=== PATIENT | male | born 1990 | race Caucasian/White ===

== ENCOUNTER → 2019-07-03 11:51 | Outpatient (BNVA) | payer MEDICAID, SELFPAY | PROVIDERS: Visit Provider Nurse Practitioner Family | DX: J45.909 Unspecified asthma, uncomplicated (principal); Z13.6 Encounter for screening for cardiovascular disorders; Z00.00 Encounter for general adult medical examination without abnormal findings | CPT/HCPCS: 80053; 80061; 85025 ==

== ENCOUNTER 2019-10-06 10:08 | Emergency (ER) | payer MEDICAID, SELFPAY ==
[2019-10-06] VITALS (14 sets, daily range): BP systolic 140–167; BP diastolic 71–92; PULSE 92–121; RESP 17–31; TEMP 37; O2SAT 95–97; BMI 23.0
--- NOTE | 2019-10-06 10:20 | XRR_ITS ---
PROCEDURE INFORMATION: Exam: XR Right Knee Exam date and time: 10/06/2019 10:21 AM Age: 29 years old Clinical indication: Injury or trauma; Fall; Initial encounter; Patella or knee; Right; Severity of dislocation not specified; Additional info: Pain/deformity TECHNIQUE: Imaging protocol: XR Right knee. Views: 3 views. COMPARISON: No relevant prior studies available. FINDINGS: Bones/joints: Complete lateral dislocation of the patella. Soft tissues: Normal. XR/XR knee RT 3V* [id number] IMPRESSION: Complete lateral dislocation of the patella.
--- NOTE | 2019-10-06 10:21 | ED_ITS ---
HPI - Extremity Problem General: Chief complaint: Extremity Injury, Lower Stated complaint: RIGHT KNEE DISLOCATION Time Seen by Provider: 10/06/19 10:12 History of Present Illness: HPI Narrative: 29-year-old male presents to the emergency room with complaint of knee pain. He was mowing the lawn at an angle and slipped resulting in what appears to be a dislocated patella. There is lateral displacement of the patella with obvious deformity. There is no pro jecting bone, there is no laceration. He states he previously had a similar injury and was cared for by Dr. Hensley. Complaint: extremity pain Onset (ago): minute(s) Pain Consistency: constant Location: right, lower extremity and knee Severity scale (1-10): 10 Quality: sharp Associated symptoms: Reports no associated symptoms; Deny chest pain, fever(s) or rash Review of Systems Const: Denies: fever(s), chills, body aches, change in appetite, fatigue or malaise ENMT: Denies: throat pain, ear or mastoid pain, nasal discharge or nasal congestion Card: Denies: chest pain, edema, dyspnea on exertion or orthopnea Resp: Denies: dyspnea, productive cough or non-productive cough GI: Denies: abdominal pain, nausea, vomiting, hematemesis, coffee ground emesis, diarrhea, constipation, bloating, hematochezia or melena : Denies: flank pain, dysuria, urinary frequency or urinary urgency Skin/Breast: Denies: rash or pruritus PFSH ED PFSH: Family History Father Diabetes Hyperlipidemia Hypertension Stroke Heart disease Social History Smoking and tobacco status: never smoked Second hand smoke exposure: No Alcohol intake: never Lives independently: No Household members: family Housing: House Marital status: Single service: No Current occupational status: disabled History of recent travel: No Current gender identity: Male Physical Exam Const: COMMON NORMALS: average body habitus, patient oriented x3 and alert GENERAL APPEARANCE: cooperative, comfortable, well kempt and well developed N UTRITIONAL APPEARANCE: obese ORIENTATION/CONSCIOUSNESS: Yes awake, Yes oriented to person and Yes oriented to place HENMT: COMMON NORMALS: normocephalic, atraumatic and Normal external nose present HEAD & SCALP: normocephalic and atraumatic NOSE: Normal external nose present MOUTH: Normal oral and palatal mucosa present, lip normal and tongue normal THROAT: posterior oropharynx normal and tonsils normal Eye: COMMON NORMALS: Equal, round and reactive pupils present, EOMs intact bilaterally, conjunctivae normal and no scleral icterus CONJUNCTIVA: Yes conjunctivae normal PUPIL: Yes Equal, round and reactive pupils present Neck/C-Spine: COMMON NORMALS: full ROM, no lymphadenopathy, supple, no meningeal signs and Thyroid normal THYROID: Thyroid normal and asymmetrical Lymph: LYMPHATIC: no lymphadenopathy noted Resp: COMMON NORMALS: normal respiratory effort, No retractions, No use of accessory muscles and clear to auscultation bilaterally AUSCULTATION: clear to auscultation bilaterally Cardio: COMMON NORMALS: regular rate and regular rhythm RATE: regular rate RHYTHM: regular rhythm HEART SOUNDS: no murmurs GI: COMMON NORMALS: Normal to inspection, nondistended, normoactive bowel sounds present, Soft to palpation and No hepatosplenomegaly present PALPATION: Yes Soft to palpation and Yes No hepatosplenomegaly present : COMMON NORMALS: Yes no CVA tenderness BLADDER/KIDNEY EXAM: Yes no CVA tenderness Back/Pelvis: COMMON NORMALS: no CVA tenderness LUMBAR SPINE/LOWER BACK: Yes normal to inspection Extremity: NARRATIVE EXTREMITY EXAM: Right knee flex letter obvious lateral d isplacement of the patella. There is no apparent fracture. No open wound. Neuro: COMMON NORMALS: patient oriented x3 SENSORIUM/ORIENTATION: Yes alert, Yes oriented to person and Yes oriented to place MENINGEAL SIGNS: Yes no meningeal signs Psych: APPEARANCE: Yes well kempt Skin: COMMON NORMALS: no rashes or lesions noted and turgor normal GENERAL SKIN EXAM: no rashes or lesions noted and turgor normal Procedures Orthopedic Joint Reduction Joint #1: Time Out Performed: Yes Side: right Joint Reduction Location: knee/patella Analgesia: procedural sedation Post-reduction neuro exam: intact and no change Post-reduction vascular: intact and no change Post Reduction X-Ray Obtained: Yes Post Reduction X-Ray Results: reduced Splint Applied: Yes Additional Comments: Patient sedated with etomidate the right leg with extended medially manipulated patella back into position x-ray shows superior displacement of the patella suggestive of infrapatellar tendon rupture. Patient be kept in knee immobilizer and referred to Ortho. Procedural Sedation Indication: fracture/dislocation reduction Presedation Evaluation: Patient awake alert and oriented with no respiratory difficulty. Has an obvious deformity with lateral displacement of the right patella Preparation: campus monitor applied, pulse oximeter, supplemental O2 applied, suction/airway equipment at bedside and IV secured IV Etomidate dose (mg): 10 Patient Tolerated Procedure: well Complications: none Course Vital Signs: Vital signs: Vital Signs Temperature 98.6 F 10/06/19 10:11 Pulse Rate 97 10/06/19 12:00 Respiratory Rate 20 H 10/06/19 12:00 Blood Pressure 140/78 10/06/19 12:00 Pulse Oximetry 96 10/06/19 12:00 MDM - Extremity (Nontraumatic) MDM Narrative: Medical decision making narrative: Discharge home with knee immobilizer and crutches follow-up with Ortho Discharge Plan Discharge Patient Disposition: Home, Self-Care Clinical Impression: Closed dislocation of patella Condition: Stable Prescriptions: New hydrocodone-acetaminophen 5-325 mg tablet 1 tab PO Q6H PRN (Reason: pain) Qty: 10 RF: 0 No Action Allergy Medication 1 tab PO DAILY RF: 0 naproxen 2 tab PO PRN RF: 0 Flovent HFA 110 mcg/actuation HFA aerosol inhaler 1 puff INHALATION BID PRN (Reason: unknown) RF: 0 ProAir HFA 90 mcg/actuation Hfa Aerosol Inhaler 2 puff INHALATION QID PRN (Reason: Shortness Of Breath) RF: 0 Discharge Orders: Discharge Order (Routine); Ordered 10/06/19 Ordered By: Sharif Monte Discharge Diet: Usual diet Discharge Activity: Use walker/crutches as instructed Activity Restrictions/Additional Instructions: Follow-up with Ortho. We have left a message with the Ortho clinic with your name they will call you to arrange for a specific date and time Discharge Date/Time: 10/06/19 12:20 Coding Level of Care Code ED [employer] Worker for H[employer] Fwramos Exam Comprehensive
[2019-10-06] MEDS: morphine 4 mg/mL SDV 1 mL IVP ×2 (10:25→11:06)
--- NOTE | 2019-10-06 11:16 | XRR_ITS ---
PROCEDURE INFORMATION: Exam: XR Right Knee Exam date and time: 10/06/2019 11:17 AM Age: 29 years old Clinical indication: Condition or disease; Other: Dislocation; Patient HX: Post reduction dislocated R knee TECHNIQUE: Imaging protocol: XR Right knee. Views: 3 views. COMPARISON: CR (LOW EXM, ) 10/06/2019 10:21 AM FINDINGS: Bones/joints: Interval reduction of right patellar dislocation. Soft tissues: Radiopaque splint material in place. XR/XR knee RT 3V* [id number] IMPRESSION: Interval reduction of right patellar dislocation.
--- NOTE | 2019-10-08 11:55 | DCPLANNER ---
manager of hospital had message to schedule a follow up appointment for patient with ortho. manager of hospital called the ortho clinic, spoke with Pat, gave clinic patients information. manager of hospital was told that patients information would be printed and reviewed. Clinic will call pillowcase maker and patient with appointment information.
--- NOTE | 2019-10-10 13:10 | DCPLANNER ---
Patient had a follow up appointment scheduled for 10.10.19, patient did attend the appointment.
== END 2019-10-06 12:20 | disposition home or self-care (01) ==
LOC: ER 11:09
PROVIDERS: Emergency Provider Family Medicine
DX: S83.004A Unspecified dislocation of right patella, initial encounter (principal); W01.0XXA Fall on same level from slipping, tripping and stumbling without subsequent striking against object, initial encounter; E11.9 Type 2 diabetes mellitus without complications; E78.5 Hyperlipidemia, unspecified; I10 Essential (primary) hypertension; Z86.73 Personal history of transient ischemic attack (TIA), and cerebral infarction without residual deficits
CPT/HCPCS: 12345; 27560; 29530; 73562; 96374; 96375; 96376; 99283; E0114; J2270; J3490

== ENCOUNTER 2019-10-23 08:26 | Outpatient (CLI) | payer MEDICAID, SELFPAY ==
--- NOTE | 2019-10-23 08:45 | MRR_ITS ---
PROCEDURE INFORMATION: Exam: MR Right Lower Extremity Joint Without Contrast, Knee Exam date and time: 10/23/2019 9:30 AM Age: 29 years old Clinical indication: Injury or trauma; Injury history: Mowing injury; Initial encounter; Sprain or strain; Patella or knee; Right; Injury date: 1 week ago; Injury details: Unable to bend R knee, patella shifted to lateral side, was put back in place; Prior surgery; Additional info: S83.006a unspecified dislocation of unspecified patella, . . . TECHNIQUE: Imaging protocol: MR of the Right lower extremity joint without contrast. Exam focused on the knee. COMPARISON: MRI Knee w/o RIGHT* [id number] 11/14/2012 4:56 PM FINDINGS: Bones and cartilage: There is patella Parvin variant. There are findings compatible with recent patellofemoral dislocation with persistent subluxation/near complete dislocation of patella. There is a tear of the lateral patellar retinaculum series 9, image 18. There is an osteochondral fracture of the medial patella with abundant bony edema and a truncated appearance of the medial patella series 9, image 18. Probable displaced bone fragment and cartilage of the medial patella is visualized on series 9, image 17 just inferior to the patellar bony defect. The probable osteochondral fragment arising from the medial patella appears to be tethered to the patella by some periosteum anteriorly. There is a large area of bony edema involving the anterior lateral aspect of the lateral femoral condyle compatible with recent patellofemoral dislocation and impaction injury. There is very mild cortical depression of the anterior aspect of the lateral femur measuring less than 2 mm. No osteochondral defect of the femur is identified. There is abundant edema along the anterior knee. There is mild cartilage loss in the weight-bearing knee joint. No additional osteochondral body is identified in the remainder of the knee joint. There is mild distal patellar tendinopathy. Joint spaces: Fluid from the knee joint is protruding through the defect into the subcutaneous fat. There is a knee joint effusion. Medial meniscus: Unremarkable. No tear. Lateral meniscus: Unremarkable. No tear. Anterior cruciate ligament: Unremarkable. No tear. Posterior cruciate ligament: Unremarkable. No tear. Medial capsule and supporting structures: There is marked edema along the medial patellofemoral ligament and tearing of the medial patellofemoral ligament at the femur on series 9, image 12. Lateral capsule and supporting structures: Unremarkable. No tear. There is edema along the posterior lateral corner ligaments compatible with reactive edema to the adjacent contusion of the lateral femur. Extensor mechanism of knee: The quadriceps tendon is intact. Muscles: There is some mild edema in the distal vastus medialis and lateralis muscles compatible with a strain/reactive edema. Soft tissues: Abundant edema. MR/MR knee RT wo con* [id number] IMPRESSION: 1. Recent complete patellofemoral dislocation with osteochondral fracture of the medial patella and osteochondral fragment that is displaced but still tethered to the patella by some intact periosteum. There is high-grade subluxation /near complete dislocation of the patella with respect to the femur. Tears of the medial and patellofemoral retinaculum are noted. 2. Impaction contusion anterior lateral femur without osteochondral fragment. No additional osteochondral body in the knee joint.
== END 2019-10-23 08:27 | disposition home or self-care (01) ==
LOC: RADSHAW 08:31
PROVIDERS: PCP Family Medicine; Visit Provider Specialist
DX: S89.91XA Unspecified injury of right lower leg, initial encounter (principal); S83.004A Unspecified dislocation of right patella, initial encounter; S82.011A Displaced osteochondral fracture of right patella, initial encounter for closed fracture; S70.11XA Contusion of right thigh, initial encounter; X58.XXXA Exposure to other specified factors, initial encounter
CPT/HCPCS: 73721

== ENCOUNTER 2019-11-15 13:21 | Outpatient (CLI) | payer MEDICAID, SELFPAY ==
--- NOTE | 2019-11-15 13:45 | CT_ITS ---
WS: [id number] INDICATION: Patellar dislocation TECHNIQUE: Noncontrast CT right knee coronal sagittal reformatted images FINDINGS: Comparison MRI October 23, 2019 Sequelae of recent patellofemoral dislocation with osteochondral fracture of the medial patella also seen on the prior MRI. Again seen is high-grade tear of the medial patellofemoral retinaculum. Bony c ontusion anterolateral femur. Small suprapatellar effusion. Mild soft tissue edema. Lateral subluxation/dislocation of the patella relative to the trochlear groove. This is similar in a ppearance the prior MRI. No displaced osteochondral fragment or intra-articular fragments.Small osteo chondral avulsion at the femoral origin of the medial patellar retinaculum, Patella amarilys. No other significant changes since the prior MRI. CT/CT knee RT wo con* [id number] IMPRESSION: 1. Sequelae of recent patellofemoral dislocation with osteochondral fracture i nvolving the medial patella. 2. No visualized displaced or intra-articular osteochondral fragments. 3. Persistent subluxation/dislocation of the patella relative to the trochlea groove is unchanged. 4. Small suprapatellar effusion. 5. High-grade tear of the medial and lateral patellar retinaculum appears unch anged. 6. Small osteochondral avulsion at the femoral origin of the medial patellar r etinaculum 7. No other significant changes since the prior MRI.
== END 2019-11-15 13:22 | disposition home or self-care (01) ==
PROVIDERS: Family Provider Family Medicine; PCP Family Medicine; Visit Provider Orthopaedic Surgery
DX: M24.461 Recurrent dislocation, right knee (principal); M25.461 Effusion, right knee
CPT/HCPCS: 73700

== ENCOUNTER 2019-11-21 05:44 | Day surgery (SDC) | payer MEDICAID, SELFPAY ==
[2019-11-20 11:41] VITALS: BMI 27.1
[2019-11-21] VITALS (15 sets, daily range): BP systolic 116–175; BP diastolic 70–101; PULSE 70–118; RESP 16–105; TEMP 36.6–36.8; O2SAT 95–100
--- NOTE | 2019-11-21 | XR_ITS ---
WS: [id number] INTRAOPERATIVE TECHNIQUE: 3 Spot fluoroscopic images for intraoperative purposes. FLUOROSCOPY TIME: 50.8 seconds CLINICAL INFORMATION: RIGHT KNEE LIGAMENT REPAIR COMPARISON: None. FINDINGS: Images obtained for intraoperative purposes. Single AP and lateral views of the right knee ligament r epair. XR/XR knee RT 3V* [id number] IMPRESSION: Images obtained for intraoperative purposes.
--- NOTE | 2019-11-21 | SCC_ITS ---
Procedure Done: Diagnostic arthroscopy with a chondroplasty medial facet patella, medial patellofemoral ligament 50.8 seconds of fluoroscopic guidance, for a cumulative dose of 2.33 mGy, was provided to Dr. Wallace by the radiology department. C-arm images of the RIGHT knee were saved for the patient's permanent record. AXEL
[2019-11-21] MEDS: sodium chloride 0.9% 1,000 ML 30 ML IV (06:30)
--- NOTE | 2019-11-21 06:52 | P.ANESASSM_ITS ---
Pre-Anesthetic Assessment Pre-Anesthetic Assessment: Height/Weight: Height 1.8 m Weight 88.451 kg Temp Pulse Resp BP Pulse Ox 98.1 F 70 16 163/80 98 11/21/19 06:10 11/21/19 06:10 11/21/19 06:10 11/21/19 06:10 11/21/19 06:10 Preop Diagnosis: Right patellofemoral dislocation with loose body Proposed Procedure: Operation Date: 11/21/19 07:40 Proposed Procedures p Knee Arthroscopy/22503 M24.461(Right) - Glen Wallace MD s Patellofemoral Ligament Reconstruction(Right) - Glen Wallace MD Familial anesthetic complications: None Was Beta Cheli taken within 24 hours: N/A Last intake: Intake Last Liquid Date 11/20/19 Last Liquid Time 23:00 Last Solid Date 11/20/19 Last Solid Time 23:00 Social: Social History: No alcohol and No tobacco Exam: Pre-Anes Outpt Exam: alert, oriented x 3, clear to auscultation bilaterally and regular rate & rhythm Airway: Cervical ROM: WNL MP: 1 Additional comments: missing Pulmonary: Pulmonary: None reported Anesthetic Plan: ASA status: 1 Anesthesia: General Risk of > 500 ml blood loss (7ml/kg in children): No Meds/Allergies Current Medications: Current Medications Generic Name Dose Route Start Last Admin Trade Name Freq PRN Reason Stop Dose Admin Sodium Chloride 1,000 mls @ 30 ml s/hr 11/21/19 06:00 11/21/19 06:30 Sodium Chloride 0.9% IV 11/22/19 05:59 30 mls/hr .Q24H LA Administration PFSH Anesthesia PFSH: Surgical History Hx of appendectomy (~1996) Hx of knee surgery Family History Father Diabetes Hyperlipidemia Hypertension Stroke Heart disease Social History Smoking and tobacco status: never smoked Second hand smoke exposure: No Alcohol intake: never Lives independently: No Household members: family Housing: House Marital status: Single service: No Current occupational status: disabled History of recent travel: No Current gender identity: Male Data Anesthesia Cardiac Studies: No Data to Display
--- NOTE | 2019-11-21 07:00 | W.PM.OPSUD ---
Surgery/Procedure H&P Update DATE OF PROCEDURE: November 21, 2019 DATE H&P PERFORMED: 11/13/19 H&P UPDATE INFORMATION: I have reviewed H&P completed within last 30 days and I have examined patient prior to procedure CHANGES TO PREVIOUS DOCUMENTATION: CT scan of the knee was reviewed. He had no specific elevation of his TT/TG distance. I do not see any benefit to medialization of his tibial tubercle. He has some patella alto however, access to physical therapy postoperatively, and his inability to move the knee over the past month I am concerned that a distalization of the tibial tubercle be too difficult of a rehabilitation option. We will proceed with the medial patellofemoral ligament instruction as I discussed PREOP DIAGNOSIS: Right patellofemoral dislocation with loose body PLANNED PROCEDURE: Operation Date: 11/21/19 07:40 Proposed Procedures p Knee Arthroscopy/85036 M24.461(Right) - Glen Wallace MD s Patellofemoral Ligament Reconstruction(Right) - Glen Wallace MD
[2019-11-21] MEDS: morphine 4 mg/mL SDV 1 mL 8 MG XX (08:15)
[2019-11-21] MEDS: ondansetron 2 mg/ML SDV 2 mL 4 MG IVP (09:49)
--- NOTE | 2019-11-21 10:00 | PM.OP ---
Operative Report Date of procedure: November 21, 2019 Pre-op Diagnosis: Right patellofemoral dislocation with loose body, chondral fracture right knee Post-op diagnosis: other Post-op Diagnosis: Patellofemoral dislocation with lateral patellar instability, chondromalacia medial facet patella Post-op Findings: Lateral patellar instability, chondromalacia of medial facet patella Procedure Done: Diagnostic arthroscopy with a chondroplasty medial facet patella, medial patellofemoral ligament Implants: [employer] Biosure PK having by 25 mm Pathology: none sent Surgeon: Glen Wallace Anesthesia: General Estimated blood loss (mL): 50 Tourniquet time (min): 59 Complications: None Findings: The patient had large cracks and fissures over the medial facet of his right patella. No loose bodies were identified. The patient had laxity of his patella femoral joint where his patella could be displaced at least 75% of its width medially and laterally. As the knee was brought through a range of motion he had a positive J sign with his patella reducing in the patellofemoral groove with a rapid clunk at 30 degrees flexion. He had fibrillation and fraying of the medial facet of the patella but no loose chondral fragments or osteochondral fragments were identified Brief History: The patient is a 29-year-old male who sustained a lateral patellar dislocation approximately a month ago with a suspected large chondral flap of his patella on MRI. He has been unable to move his knee since the injury. His preoperative examination revealed lateral displacement of his patella proximally and a refusal to move the knee. He had excessive laxity of his patellofemoral joints really of both knees. Preoperative work-up included pain radiographs illustrating pre-and post reduction lateral patellar dislocation and patella alter, the MRI suggesting the large chondral flap and a CT scan suggesting a normal tibial tubercle/trochlear groove distance. The patient was taken to the operating room for a diagnostic arthroscopy and debridement versus repair of the chondral flap. As he had reasonable normal bony relationships, other than patella amarilys, a local transfer was not done. Medial patellofemoral ligament was chosen to augment his lax medial tissues and realign the patella Procedure: The patient was taken to the operating room and given 2 g of Ancef. He was given a general anesthesia. His knee was infiltrated with 30 cc of 0.5% Marcaine with epi and 10 mg of morphine. The knee was entered through the standard inferior medial and inferior lateral portal. The diagnostic portion arthroscopy was performed. Chondromalacia was identified over the medial facet of the patella. It was carefully probed and found to be free of large flaps or exposed subchondral bone but it was thought that removal of fibrillated and unstable cartilage would be beneficial. Utilizing an incisor shaver and [employer] Werewolf probe unstable fissures and fibrillated cartilage over the medial facet were debrided back. This involves removal of no more than 50% of the thickness of the cartilage and certainly no subchondral bone was identified. Detailed diagnostic arthroscopy was performed revealing no meniscal or internal stabilizing ligamentous injury. No loose bodies were identified. The scope was then removed. The knee was brought through a range of motion. The patella was laterally displaced in full extension. At approximately 30 degrees of flexion it would jump into the trochlear groove with a clunk and tracked normally. The patient anesthetized the laxity of the patellofemoral joint was clearly displayed as the patella could be displaced at least 75% of its width both medially and laterally. A tourniquet was then inflated to 275 mmHg. A 3 cm long incision was made over the medial tibia and dissection carried down to the Pez anserine tendons. The sartorius fascia was split in a well-developed healthy semi-tendinosis tendon was identified. It was freed from its insertion on the tibia and using a closed ended tendon stripper tendon was harvested. It was freed of a muscle on the proximal end with a scalpel blade. Both ends of the suture were fixed with a ultra braid suture and locking Krak?w fashion. [place] over tendon fit reasonably easily through a 7 mm tunnel. Next a 5 cm long incision was made incorporating the medial portal extending proximally along the medial aspect the patella. Dissection was carried down to the medial patella and medial extensor retinaculum. Soft tissues were freed off the retinaculum to allow access down to Do femoral ligament origin on the femur. Dissection was carried down cautery and approximately the junction between the proximal third and distal two thirds of the patella with cautery. A guidepin was driven from the medial patella exiting anteriorly and over this was passed the Endobutton reamer. The semi-tendinosis tendon was then passed through this tunnel. A soft tissue tunnel was accomplished underneath the vastus medialis exiting just superior to the patella and the semi-tendinosis tendon that had been passed through the patella anteriorly was then shuttled through this soft tissue tunnel. Utilizing C arm Schottles point was identified just anterior to the posterior femoral cortex between perpendicular lines of Blumenstat's line and a line from the prosimal articular edge of the condyles. A guidepin was driven from this point anteriorly and proximally. A 7 mm socket was drilled to approximately 38 mm in the Endobutton reamer passed up and through the medial cortex. This guidepin was then used to pass a subtle suture which was used to shuttle the free sutures from the semi-tendinosis graft 4 oh the socket exiting the medial femur. Tension was applied across the sutures until lateral patellar instability was eliminated. At this point knee J sign was eliminated and with the knee flexed at 30 degrees the patella could be displaced no more than 50% of its width. Guidepin and the Biosure PK interference screws were placed. Intraoperative imaging displayed the bony tunnels in satisfactory position. The tourniquet was deflated. The semi-tenderness tendon was sutured to the medial capsule with 2-0 Vicryl. Subcutaneous tissues were closed with 2-0 Vicryl. The skin was closed with skin john. Xeroflo gauze and 4 x 4's were applied. The patient was placed in a knee immobilizer, extubated, and taken recovery in stable condition.
[2019-11-21] MEDS: fentaNYL 50 mcg/mL INJ 2mL IVP ×2 (10:03→10:08)
--- NOTE | 2019-11-21 10:42 | SUR.PHASEI ---
0945 PT HAS SENSATION/MOVEMENT TO R. FOOT, PEDAL PULSE PALPATED, CAP REFILL <3 SEC
[2019-11-21] MEDS: oxyCODONE 5 mg IR Tab/Cap PO (11:09)
== END 2019-11-21 11:35 | disposition home or self-care (01) ==
PROVIDERS: PCP Family Medicine; Visit Provider Orthopaedic Surgery
PROC: (CPT 29870; principal; 2019-11-21 07:40)
PROC: (CPT 27427; 2019-11-21 07:40)
DX: M24.461 Recurrent dislocation, right knee (principal); M22.41 Chondromalacia patellae, right knee; Z82.49 Family history of ischemic heart disease and other diseases of the circulatory system; Z83.3 Family history of diabetes mellitus
CPT/HCPCS: 27427; 12345; 73562; 76000; 96365; C1713; J0690; J1100; J1580; J1885; J2001; J2270; J2405; J2704; J3010; J3490; J7030

== ENCOUNTER → 2020-10-23 10:01 | Outpatient (BNVA) | payer MEDICAID, SELFPAY | PROVIDERS: PCP Family Medicine; Visit Provider Nurse Practitioner Family | DX: Z13.6 Encounter for screening for cardiovascular disorders (principal); Z00.00 Encounter for general adult medical examination without abnormal findings | CPT/HCPCS: 80053; 80061; 85025 ==

== ENCOUNTER 2021-03-05 11:09 | Outpatient (CLI) | payer MEDICAID, SELFPAY ==
[2021-03-05] MEDS: iohexol 300 mg/mL 50 mL Btl PO (11:36)
--- NOTE | 2021-03-05 13:00 | CT_ITS ---
WS: [id number] CT ABDOMEN PELVIS TECHNIQUE: Contrast-enhanced CT of the abdomen and pelvis with coronal and sagittal reformatted image s. CLINICAL INFORMATION: R10.9 - Unspecified abdominal pain COMPARISON: CT June 30, 2017 and . DLP: 1224.[address] scans at [facility] use at least one of these dose optimization techniques: automated e xposure control; mA and/or kV adjustment per patient size (includes targeted exams where dose is matc hed to clinical indication); or iterative reconstruction. FINDINGS: Diffuse fatty infiltration of the liver. Normal portal vein and splenic vein. Cholecystectomy clips. Normal spleen. Small esophageal hiatal hernia. Adrenal glands are normal. Normal renal parenchymal en hancement. No hydronephrosis. Normal pancreas. Normal portal vein and splenic vein. Normal spleen. Normal caliber abdominal aorta. No abdominal or pelvic lymphadenopathy. No inguinal lymphadenopathy. Tiny fat-containing umbilical hernia. Rectal constipation. No evidence of high-grade small or large b owel obstruction. Normal lumbar spine. CT/CT abdomen pelvis w con* [id number] IMPRESSION: 1. Diffuse fatty infiltration of the liver. Prior cholecystectomy. 2. No hydronephrosis in either kidney. Normal renal parenchymal enhancement. 3. No abdominal or pelvic lymphadenopathy. 4. Normal caliber abdominal aorta. 5. Tiny fat-containing umbilical hernia. 6. Tortuous sigmoid colon with a few sigmoid diverticuli. No evidence of acute diverticulitis. 7. No other significant findings.
[2021-03-05] MEDS: iohexol 300 mg/mL 100 mL Btl IV (13:06)
== END 2021-03-05 11:10 | disposition home or self-care (01) ==
PROVIDERS: PCP Family Medicine; Visit Provider Nurse Practitioner Family
DX: K76.0 Fatty (change of) liver, not elsewhere classified (principal); K42.9 Umbilical hernia without obstruction or gangrene; R10.9 Unspecified abdominal pain; Z90.49 Acquired absence of other specified parts of digestive tract
CPT/HCPCS: 74177; 80053; 81003; 82150; 83690; 85025; 87491; 87591; Q9967

== ENCOUNTER → 2021-07-10 13:18 | Outpatient (BNVA) | payer MEDICAID, SELFPAY | PROVIDERS: PCP Family Medicine; Visit Provider Nurse Practitioner Family | DX: R10.84 Generalized abdominal pain (principal) | CPT/HCPCS: 80053; 81000; 82150; 83690; 85025 ==

== ENCOUNTER 2021-07-14 09:38 | Emergency (ER) | payer MEDICAID, SELFPAY ==
[2021-07-14 09:42] VITALS: BP 164/96; PULSE 70; RESP 18; TEMP 36.9; O2SAT 98; BMI 29.9
[2021-07-14 10:09] LABS: Add Urine Microscopic? NO; Charge for UA Resulting for Rev
[2021-07-14 10:13] LABS: Bilirubin Urine Neg (Negative); Blood Urine Neg (Negative); Glucose Urine UA Norm (Normal); Ketones Urine Negative (Negative); Leukocyte Esterase Urine Negative (Negative); Nitrate Urine Negative (Negative); Protein Urine Neg (Negative); Urine Appearance Clear (CLEAR); Urine Color Straw (Yellow); Urobilinogen Urine Norm (Negative); pH Urine 7 (5-7)
[2021-07-14 10:14] LABS: Basophils # 0.1 10^3/uL (0.0-0.1); Basophils % 1.3 %; Eosinophils # 0.3 10^3/uL (0.0-0.8); Hemoglobin 15.4 g/dL (11.7-16.6); Lymphocytes # 1.8 10^3/uL (0.8-4.8); Lymphocytes % 28.2 %; Mean Corpuscular HGB Conc 34.2 g/dL (30.0-36.0); Mean Corpuscular Hemoglobin 28.2 pg (28.0-34.0); Mean Corpuscular Volume 82.4 fl (80-94); Mean Platelet Volume 10.1 fL (7.4-10.4); Monocytes # 0.7 10^3/uL (0.2-0.9); Monocytes % 11.6 %; Neutrophils # 3.33 10^3/uL (1.8-7.7); Neutrophils % 53.6 %; Nucleated Red Blood Cells % 0 %; Platelet Count 271 10^3/cmm (130-400); Red Blood Count 5.46 10^6/uL (4.1-5.3); Red Cell Distribution Width 12.7 % (12.1-15.1); White Blood Count 6.2 10^3/uL (4.0-10.0)
--- NOTE | 2021-07-14 10:14 | ED_ITS ---
HPI - Abdominal Pain General: Chief Complaint: Abdominal Pain Stated Complaint: Pain in his lower right side Time Seen by Provider: 07/14/21 09:40 Source: patient Mode of arrival: ambulatory History of Present Illness: 31-year-old male presents emergency room with complaint of abdominal discomfort and right lower quadrant. Patient states he has had this for couple weeks got significantly worse overnight woke him from sleep this morning he said about 3-4 episodes of vomiting at home he also had some loose stools no hematochezia melena hematemesis or coffee-ground emesis. No dysuria urgency frequency or hematuria. No fever at home. He has previously had an appendectomy and a cholecystectomy he references a couple of times a previous CT that showed what he states is a twisted colon. He had a tortuous sigmoid colon on previous CT but there is no documentation of any volvulus or bowel obstruction on previous imaging in our old records. MD elicited complaint: abdominal pain Onset (ago): week(s) Location: None Severity: moderate Quality: cramping Exacerbating factors: nothing Relieving factors: nothing Associated Symptoms: Reports change in bowel habits, change in stool character, diarrhea, loose stools, nausea, poor appetite and vomiting; Denies anorexia, belching, bloating, coffee ground emesis, constipation, GI cramping, dyspepsia, dysuria, excessive flatus, fever(s), heartburn, h ematochezia, hematuria, hematemesis, fecal incontinence and melena Review of Systems Const: Denies: fever(s) GI: Reports: nausea, vomiting, diarrhea, change in bowel habits and change in stool character; Denies: hematemesis, coffee ground emesis, heartburn, constipation, bloating, GI cramping, belching, excessive flatus, fecal incontinence, hematochezia or melena : Denies: dysuria or hematuria PFSH ED PFSH: Medical History IBS (irritable bowel syndrome) Seasonal allergies Surgical History Hx of appendectomy (~1996) Hx of knee surgery Family History Father Diabetes Hyperlipidemia Hypertension Stroke Heart disease Social History Smoking and tobacco status: never smoked Second hand smoke exposure: No Alcohol intake: never Lives independently: No Household members: family Housing: House Marital status: Single service: No Current occupational status: disabled History of recent travel: No Current gender identity: Male Physical Exam 2 Const: COMMON NORMALS: no acute distress GENERAL APPEARANCE: cooperative and comfortable ORIENTATION/CONSCIOUSNESS: Yes awake, Yes oriented to person, Yes oriented to place and Yes oriented to time HENMT: COMMON NORMALS: normocephalic, atraumatic and hearing grossly normal bilaterally HEAD & SCALP: normocephalic and atraumatic Neck/C-Spine: COMMON NORMALS: no JVD Resp: COMMON NORMALS: normal respiratory effort, No retractions, No use of accessory muscles and clear to auscultation bilaterally AUSCULTATION: clear to auscultation bilaterally Cardio: COMMON NORMALS: no JVD, regular rate, regular rhythm and No murmurs pr esent (Cardio) RATE: regular rate RHYTHM: regular rhythm GI: COMMON NORMALS: Soft to palpation and No hepatosplenomegaly present AUSCULTATION: Yes normoactive bowel sounds PALPATION: Yes Soft to palpation, No Tenderness to palpation present (GI), No Guarding due to palpation present (GI) and Yes No hepatosplenomegaly present Extremity: COMMON NORMALS: normal to inspection, capillary refill normal, no clubbing, cyanosis or edema, no calf tenderness and no pedal edema Neuro: SENSORIUM/ORIENTATION: Yes oriented to person, Yes oriented to place and Yes oriented to time Skin: COMMON NORMALS: no rashes or lesions noted GENERAL SKIN EXAM: no rashes or lesions noted Course Vital Signs: Vital signs: Vital Signs Temperature 98.2 F 07/14/21 11:00 Pulse Rate 69 07/14/21 11:00 Respiratory Rate 18 07/14/21 11:00 Blood Pressure 141/78 07/14/21 11:00 Pulse Oximetry 97 07/14/21 11:00 MDM - Abdominal Pain Medical Decision Making CT unremarkable white count normal. Discussed the patient discharged home with clear cadet 24 to 48 hours advance as tolerated return if has problems. Medical Records I reviewed the patient's medical records. Lab Data I reviewed the patient's lab results. : 07/14/21 10:09 07/14/21 10:09 Labs/Radiology: Radiology Impressions Abdomen/Pelvis CT 07/14/21 10:18 IMPRESSION: 1. Prior appendectomy and cholecystectomy. 2. No GI tract obstruction or inflammatory changes. 3. No renal obstruction. Laboratory Results WBC 6.2 10^3/uL (4.0-10.0) 07/14/21 10:09 RBC 5.46 10^6/uL (4.1-5.3) H 07/14/21 10:09 Hgb 15.4 g/dL (11.7-16.6) 07/14/21 10:09 Hct 45.0 % (42.0-52.0) 07/14/21 10:09 MCV 82.4 fl (80-94) 07/14/21 10:09 MCH 28.2 pg (28.0-34.0) 07/14/21 10:09 MCHC 34.2 g/dL (30.0-36.0) 07/14/21 10:09 RDW 12.7 % (12.1-15.1) 07/14/21 10:09 Plt Count 271 10^3/cmm (130-400) 07/14/21 10:09 MPV 10.1 fL (7.4-10.4) 07/14/21 10:09 Neut % (Auto) 53.6 % 07/14/21 10:09 Lymph % (Auto) 28.2 % 07/14/21 10:09 [place] % (Auto) 11.6 % 07/14/21 10:09 Eos % (Auto) 5.0 % 07/14/21 10:09 Baso % (Auto) 1.3 % 07/14/21 10:09 Neut # (Auto) 3.33 10^3/uL (1.8-7.7) 07/14/21 10:09 Lymph # (Auto) 1.8 10^3/uL (0.8-4.8) 07/14/21 10:09 [place] # (Auto) 0.7 10^3/uL (0.2-0.9) 07/14/21 10:09 Eos # (Auto) 0.3 10^3/uL (0.0-0.8) 07/14/21 10:09 Baso # (Auto) 0.1 10^3/uL (0.0-0.1) 07/14/21 10:09 Nucleated RBC % (auto) 0 % 07/14/21 10:09 Nucleated RBCs # 0.0 /100WBC 07/14/21 10:09 Sodium 137 mmol/L (136-145) 07/14/21 10:09 Potassium 4.4 mmol/L (3.5-5.1) 07/14/21 10:09 Chloride 104 mmol/L (98-107) 07/14/21 10:09 Carbon Dioxide 22 mmol/L (22-29) 07/14/21 10:09 Anion Gap 15.4 (5-19) 07/14/21 10:09 BUN 24 mg/dL (6-20) H 07/14/21 10:09 Creatinine 0.8 mg/dL (0.7-1.2) 07/14/21 10:09 GFR Calculation 111.3 mL/min (90-130) 07/14/21 10:09 Glucose 84 mg/dL (65-115) 07/14/21 10:09 Calculated Osmolality 287 mOsm/kg (285-295) 07/14/21 10:09 Calcium 10.0 mg/dL (8.5-10.5) 07/14/21 10:09 Total Bilirubin 0.8 mg/dL (0.15-1.2) 07/14/21 10:09 AST 20 U/L (0-40) 07/14/21 10:09 ALT 29 U/L (0-41) 07/14/21 10:09 Alkaline Phosphatase 85 IU/L (40-130) 07/14/21 10:09 Total Protein 7.3 g/dL (6.6-8.7) 07/14/21 10:09 Albumin 5.0 g/dL (3.5-5.2) 07/14/21 10:09 Globulin 2.3 g/dL (1.3-4.6) 07/14/21 10:09 Lipase 35 U/L (13-60) 07/14/21 10:09 Urine Color Straw (Yellow) 07/14/21 09:55 Urine Appearance Clear (CLEAR) 07/14/21 09:55 Urine pH 7 (5-7) 07/14/21 09:55 Ur Specific [place] 1.010 (1.005-1.030) 07/14/21 09:55 Urine Protein Neg (Negative) 07/14/21 09:55 Urine Glucose (UA) Norm (Normal) 07/14/21 09:55 Urine Ketones Negative (Negative) 07/14/21 09:55 Urine Blood Neg (Negative) 07/14/21 09:55 Urine Nitrate Negative (Negative) 07/14/21 09:55 Urine Bilirubin Neg (Negative) 07/14/21 09:55 Urine Urobilinogen Norm mg/dL (Negative) 07/14/21 09:55 Ur Leukocyte Esterase Negative (Negative) 07/14/21 09:55 Discharge Plan Discharge Patient Disposition: Home Clinical Impression: Abdominal pain Condition: Stable Prescriptions: No Action gabapentin 300 mg capsule 300 mg PO BID Qty: 60 5RF omeprazole 20 mg capsule,delayed release(DR/EC) 20 mg PO BID Qty: 60 0RF ondansetron HCl [Zofran] 4 mg tablet 4 mg PO Q6H PRN (Reason: nausea and vomiting) Qty: 20 0RF acetaminophen-codeine 300-30 mg tablet See Rx Instructions PO TID PRN (Reason: pain) Qty: 20 0RF Rx Instructions: 1-2 tabs PO three times daily PRN; albuterol sulfate [ProAir HFA] 90 mcg/actuation HFA aerosol inhaler See Rx Instructions .ROUTE .COMPLEX Qty: 9 2RF Dose Instruction: INHALE 2 PUFFS BY MOUTH 4 TIMES DAILY NEEDED FOR SHORTNESS OF BREATH Rx Instructions: INHALE 2 PUFFS BY MOUTH 4 TIMES DAILY NEEDED FOR SHORTNESS OF BREATH Discharge Orders: Discharge ED (Routine); Ordered 07/14/21 Ordered By: Sharif Monte Referrals: Tati Brito MD [Primary Care Provider] - Discharge Diet: Clear Liquid Discharge Activity: Increase activity as tolerated Patient Instructions: Abdominal Pain (ED), Opioid Safety Activity Restrictions/Additional Instructions: Clear liquid diet for 24 to 40 hours and advance as tolerated. Coding Level of Care Code ED Field Machinist for Hedy Mancuso
--- NOTE | 2021-07-14 10:18 | CT_ITS ---
WS: [id number] CT ABDOMEN AND PELVIS WITH CONTRAST HISTORY: RIGHT lower quadrant pain for 1 night. Nausea, vomiting and diarrhea. TECHNIQUE: Imaging performed of the abdomen and pelvis with IV contrast. Single phase imaging of the abdomen. Coronal and sagittal reformats are submitted. All CT scans at [facility] use at [address] one of these dose optimization techniques: automated exposure control; mA and/or kV adjustment per patient size (includes targeted exams where dose is matched to clinical indication); or iterative re construction. IV CONTRAST: Omnipaque 300; 95 mL IV. Oral contrast: No DLP: 1837.7 mGy.cm COMPARISON: 03/05/2021 Lower thorax: Benign granuloma RIGHT middle lobe. Heart is normal size. Small hiatal hernia. Liver/biliary system: Normal size with no intrahepatic dilatation. Gallbladder: Status post cholecystectomy. Pancreas: Normal size pancreas and pancreatic duct. No adjacent inflammation. Spleen: Normal size spleen. No mass or infarct. Adrenal glands: Normal. Right kidney: Normal. Left kidney: Normal. Aorta: Normal. Lymphadenopathy: None. Free fluid: None. GI tract: No GI tract obstruction. The appendix is been removed. Small bowel loops in the RIGHT lower quadrant but there is no obstruction. No edema or pericolonic stranding. Abdominal wall: Unremarkable abdominal wall. No hernia. Pelvis: No free fluid or adenopathy within the pelvis. Bones: Unremarkable. CT/CT abdomen pelvis w con* [id number] IMPRESSION: 1. Prior appendectomy and cholecystectomy. 2. No GI tract obstruction or inflammatory changes. 3. No renal obstruction.
[2021-07-14 10:20] VITALS: BP 141/84; PULSE 88; RESP 18; TEMP 36.6; O2SAT 98
--- NOTE | 2021-07-14 10:25 | PC.NURSE ---
Addendum entered by Jessica Virk RN 07/14/21 11:27: Mom states pt has guardian & any changes or information should be sent to her. Guillermo Jeff [phone] Original Note: Resting on stretcher, IV started, blood & urine to lab; Mom @BS & answers most questions for pt.
[2021-07-14 10:30] VITALS: BP 141/78; RESP 18; TEMP 36.9; O2SAT 97
[2021-07-14 10:32] LABS: Alanine Aminotransferase 29 U/L (0-41); Alkaline Phosphatase 85 IU/L (40-130); Anion Gap 15.4 (5-19); Aspartate Amino Transferase 20 U/L (0-40); Blood Urea Nitrogen 24 mg/dL (6-20); Carbon Dioxide 22 mmol/L (22-29); Chloride 104 mmol/L (98-107); Creatinine Clr Calc Pharmacy 156.3924; Globulin 2.3 g/dL (1.3-4.6); Glomerular Filtration Rate 111.3 mL/min (90-130); Glucose 84 mg/dL (65-115); Lipase 35 U/L (13-60); Osmolality Calculated 287 mOsm/kg (285-295); Potassium 4.4 mmol/L (3.5-5.1); Sodium 137 mmol/L (136-145); Total Bilirubin 0.8 mg/dL (0.15-1.2); Total Protein 7.3 g/dL (6.6-8.7)
[2021-07-14] MEDS: iohexol 300 mg/mL 100 mL Btl IV (10:51)
[2021-07-14 11:00] VITALS: BP 141/78; PULSE 69; RESP 18; TEMP 36.8; O2SAT 97
--- NOTE | 2021-07-14 11:53 | PC.NURSE ---
Reviewed alex etienne mom. Gave her detailed info on liquid diet & how to advance slowly starting w cream soups & softer foods. Also encouraged her to call pt's primary physician to set up an appointment today.
--- NOTE | 2021-07-14 12:00 | PC.NURSE ---
IV dc'd prior to discharge
== END 2021-07-14 12:00 | disposition home or self-care (01) ==
PROVIDERS: Physician Assistant; Emergency Provider Family Medicine; PCP Family Medicine
DX: R10.9 Unspecified abdominal pain (principal)
CPT/HCPCS: 74177; 80053; 81003; 83690; 85025; 99283; Q9967

== ENCOUNTER → 2022-03-03 10:59 | Outpatient (BNVA) | payer MEDICAID, SELFPAY | PROVIDERS: PCP Family Medicine; Visit Provider Nurse Practitioner Family | DX: M25.561 Pain in right knee (principal) | CPT/HCPCS: 73562 ==

== ENCOUNTER → 2022-04-01 10:01 | Outpatient (BNVA) | payer MEDICAID, SELFPAY | PROVIDERS: PCP Family Medicine; Visit Provider Nurse Practitioner Family | DX: M25.562 Pain in left knee (principal) | CPT/HCPCS: 73562 ==

== ENCOUNTER → 2022-04-07 09:42 | Outpatient (BNVA) | payer MEDICAID, SELFPAY | PROVIDERS: PCP Nurse Practitioner Family; Visit Provider Orthopaedic Surgery | DX: M25.362 Other instability, left knee (principal); M25.462 Effusion, left knee | CPT/HCPCS: 73560; 73565; 99214 ==

== ENCOUNTER 2022-05-03 11:34 | Day surgery (SDC) | payer MEDICAID, SELFPAY ==
[2022-04-30 14:52] VITALS: BMI 34.2
[2022-05-03] VITALS (13 sets, daily range): BP systolic 114–152; BP diastolic 72–95; PULSE 69–90; RESP 16–20; TEMP 36.3–36.8; O2SAT 92–98
[2022-05-03] MEDS: oxyCODONE 20 mg ER (12 HR) Tablet PO (12:05)
[2022-05-03] MEDS: acetaminophen 500 mg Tablet 1000 MG PO (12:06)
[2022-05-03] MEDS: sodium chloride 0.9% 1,000 ML 30 ML IV (12:07)
--- NOTE | 2022-05-03 12:11 | P.ANESASSM_ITS ---
Pre-Anesthetic Assessment Height/Weight: Height 1.68 m Weight 96.162 kg Temp Pulse Resp BP Pulse Ox O2 Del Method 98.0 F 69 16 150/84 95 05/03/22 11:45 05/03/22 11:45 05/03/22 12:05 05/03/22 11:45 05/03/22 11:45 05/03/22 12:00 Preop Diagnosis: Left patellofemoral instability Operation Date: 05/03/22 12:20 Proposed Procedures p left knee arthroscpy with patellofemoral ligament reconstruction/ 31188, 17747 M25.362(Left) - Glen Wallace MD s Patellofemoral Ligament Reconstruction(Left) - Glen Wallace MD Familial anesthetic complications: None Was Beta Cheli taken within 24 hours: N/A Was Clonidine taken within 24 hours: N/A Last intake: Intake Last Liquid Date 05/02/22 Last Liquid Time 17:00 Last Solid Date 05/02/22 Last Solid Time 17:00 Social No alcohol and No tobacco Exam alert, oriented x 3, clear to auscultation bilaterally and regular rate & rhythm Airway Mallampati: Class II Dentition: full Pulmonary Asthma Anesthetic Plan ASA status: 2 Anesthesia: General Risk of > 500 ml blood loss (7ml/kg in children): No Medications/Allergies Home Medications Medication Instructions Recorded Confirmed Last Taken Type levocetirizine 5 mg tablet (Xyzal) 5 mg PO DAILY 90 days #90 tabs 09/25/21 05/03/22 Unknown Rx ProAir HFA 90 mcg/actuation See Rx Instructions .Route 02/17/22 05/03/22 Unknown Rx aerosol inhaler (albuterol sulfate) .COMPLEX #9 grams gabapentin 300 mg capsule See Rx Instructions .Route 03/03/22 05/03/22 05/02/22 Rx .COMPLEX #180 caps naproxen 500 mg tablet 500 mg PO BID PRN pain #60 tabs 03/03/22 05/03/22 Unknown Rx pair of crutches #1 ea 04/01/22 04/07/22 Unknown Rx tramadol 50 mg tablet 50 mg PO TID PRN pain #20 tabs 04/29/22 05/03/22 Unknown R x Allergies Allergy/AdvReac Type Severity Reaction Status Date / Time No Known Allergies Allergy Verified 04/07/22 09:44 Current Medications Generic Name Dose Route Start Last Admin Trade Name Zehra PRN Reason Stop Dose Admin Sodium Chloride 1,000 mls @ 30 mls/hr 05/03/22 11:45 05/03/22 12:07 Sodium Chloride 0.9% IV 05/04/22 11:44 30 mls/hr .Q24H LA Administration PFSH Anesthesia Medical History IBS (irritable bowel syndrome) Seasonal allergies Surgical History History of cholecystectomy History of colonoscopy Hx of appendectomy (~1996) Hx of knee surgery Family History Father Diabetes Hyperlipidemia Hypertension Stroke Heart disease Social History Smoking and tobacco status: never smoked Second hand smoke exposure: No Alcohol intake: never Lives independently: No Household members: family Housing: House Marital status: Single service: No Current occupational status: disabled History of recent travel: No Current gender identity: Male Data Anesthesia Cardiac Studies: No Data to Display
--- NOTE | 2022-05-03 12:14 | W.PM.OPSUD ---
Surgery/Procedure H&P Update DATE OF PROCEDURE: May 03, 2022 DATE H&P PERFORMED: 04/07/22 H&P UPDATE INFORMATION: I have reviewed H&P completed within last 30 days PREOP DIAGNOSIS: Left patellofemoral instability PLANNED PROCEDURE: Operation Date: 05/03/22 12:20 Proposed Procedures p left knee arthroscpy with patellofemoral ligament reconstruction/ 28282, 87654 M25.362(Left) - Glen Wallace MD s Patellofemoral Ligament Reconstruction(Left) - Glen Wallace MD
--- NOTE | 2022-05-03 12:16 | P.OP_ITS ---
Operative Report Date of procedure: May 03, 2022 Pre-op diagnosis: Preop Diagnosis Left patellofemoral instability Post-op diagnosis: same Post-op diagnosis: Patellofemoral instability, chondromalacia patella and trochlea Procedure done: Open left medial patellofemoral ligament reconstruction Arthroscopic chondroplasty medial facet patella. Implants: Rodríguez and [employer] Biosure PK screw 7x25mm Surgeon: Glen Wallace Estimated blood loss (mL): 57 Complications: None Findings: The patient had eburnated bone over the far lateral trochlea. He had fibrillation and deep fissures over the central and medial facet of the patella but at no point was exposed subchondral bone identified. There is clear hypermobility of his patella Condition: stable Disposition: PACU Brief History: Rio has a history of recurrent instability and both knees. He underwent a previous right patellofemoral ligament reconstruction he did very well. He is here today for the left. Procedure: The patient was taken to the operating room and given 2 g of Ancef.? He was given a general anesthesia.? His knee was infiltrated with 30 cc of 0.5% Marcaine with epi and 10 mg of morphine.? The knee was entered through the standard inferior medial and inferior lateral portal.? The diagnostic portion arthroscopy was performed.? Chondromalacia was identified over the medial facet of the patella.? It was carefully probed and found to be free of large flaps or exposed subchondral bone but it was thought that removal of fibrillated and unstable cartilage would be beneficial.? Utilizing an incisor shaver and Rodríguez and Nephew Werewolf probe unstable fissures and fibrillated cartilage over the medial facet were debrided back.? This involves removal of no more than 50% of the thickness of the cartilage and certainly no subchondral bone was identified.? The trochlea as well revealed wear with exposed subchondral bone over the most lateral ridge of the trochlea. There was no unstable cartilage there to benefit from debridement. A further detailed diagnostic arthroscopy was performed revealing no meniscal or internal stabilizing ligamentous injury.? No loose bodies were identified.? The scope was then removed.? The knee was brought through a range of motion.? The patella was laterally displaced in full extension.? At approximately 30 degrees of flexion it would jump into the trochlear groove with a clunk and tracked normally.? The patient anesthetized the laxity of the patellofemoral joint was clearly displayed as the patella could be displaced at least 75% of its width both medially and laterally. A tourniquet was then inflated to 275 mmHg.? A 3 cm long incision was made over the medial tibia and dissection carried down to the Pez anserine tendons.? The sartorius fascia was split in a well-developed healthy semi-tendinosis tendon was identified.? It was freed from its insertion on the tibia and using a closed ended tendon stripper tendon was harvested.? It was freed of a muscle on the proximal end with a scalpel blade.? Both ends of the suture were fixed with a ultra braid suture and locking Krak?w fashion.? [place] over tendon fit reasonably easily through a 7 mm tunnel. Next a 5 cm long incision was made incorporating the medial portal extending proximally along the medial aspect the patella.? Dissection was carried down to the medial patella and medial extensor retinaculum.? Soft tissues were freed off the retinaculum to allow access down to Do femoral ligament origin on the femur.? Dissection was carried down cautery and approximately the junction between the proximal third and distal two thirds of the patella with cautery.? A guidepin was driven from the medial patella exiting anteriorly and over this was passed the Endobutton reamer.? The semi-tendinosis tendon was then passed through this tunnel.? A soft tissue tunnel was accomplished underneath the vastus medialis exiting just superior to the patella and the semi-tendinosis tendon that had been passed through the patella anteriorly was then shuttled through this soft tissue tunnel. Utilizing C arm Schottles point was identified just anterior to the posterior femoral cortex between perpendicular lines of Blumenstat's line and a line from the prosimal articular edge of the condyles.? A guidepin was driven from this point anteriorly and proximally.? A 7 mm socket was drilled to approximately 38 mm in the Endobutton reamer passed up and through the medial cortex.? This guidepin was then used to pass a subtle suture which was used to shuttle the free sutures from the semi-tendinosis graft 4 oh the socket exiting the medial femur.? Tension was applied across the sutures until lateral patellar instability was eliminated.? At this point knee J sign was eliminated and with the knee flexed at 30 degrees the patella could be displaced no more than 50% of its width.? Guidepin and the Biosure PK interference screws were placed.? Intraoperative imaging displayed the bony tunnels in satisfactory position. The tourniquet was deflated.? The semi-tenderness tendon was sutured to the medial capsule with 2-0 Vicryl.? Subcutaneous tissues were closed with 2-0 Vicryl.? The skin was closed with running 3-0 Prolene stitches.? Xeroflo gauze and 4 x 4's were applied.? The patient was placed in a knee immobilizer, extub ated, and taken recovery in stable condition.
[2022-05-03] MEDS: ceFAZolin 2,000 MG in sodium chloride 0.9% (plus) 50 ML 100 MG IV (12:18)
[2022-05-03] MEDS: morphine 4 mg/mL SDV 1 mL XX ×2 (12:25)
--- NOTE | 2022-05-03 13:36 | XR_ITS ---
WS: [id number] Left knee, C-arm fluoroscopy lateral view, 05/03/2022 Clinical Data: OR PIC LATERAL ONLY Comparison: Left knee, 04/01/2022 Findings: There is a radiopaque probe overlying the femoral condyles on the lateral view. XR/XR knee LT 1-2V [id number] Impression: Radiopaque probe overlying femoral condyles of the left knee.
[2022-05-03] MEDS: fentaNYL 50 mcg/mL INJ 2mL IVP (14:30)
[2022-05-03] MEDS: ipratropium-albuterol 3 mL Neb (14:43)
--- NOTE | 2022-05-03 15:15 | SUR.PHASEII ---
15:00 PT WITH BILATERAL EXPIRATORY WHEEZES IN UPPER LOBES. REMAINS ON O2 AT 2 L/M. GOOD PULSE SENSATION AND ROM LEFT FOOT. TOLERATING PO FLUIDS WELL.
--- NOTE | 2022-05-03 15:44 | ANE.PACU2 ---
Inpatient post-anesthesia follow up: Airway intact: Yes Vital signs: Temperature 97.6 F Pulse Rate 90 Respiratory Rate 16 Blood Pressure 152/95 Pulse Oximetry 93 Oxygen Delivery Me thod Nasal Cannula Oxygen Flow Rate 2 Fraction of Inspir ed Oxygen Hydration adequate: Yes Nausea and vomiting: No Pain level: 2 Mental status: Baseline
[2022-05-03] MEDS: oxyCODONE-APAP 5-325 mg Tablet 1 TAB PO ×2 (16:25→17:45)
[2022-05-03] MEDS: ipratropium-albuterol 3 mL Neb INHALATION (16:45)
--- NOTE | 2022-05-03 16:58 | SUR.PHASEII ---
16:45 PT WITH BILATERAL INSPIRATORY AND EXPIRATORY WHEEZES. DOCTOR Pamela INFORMED OF PT'S CONDITION. BREATHING TREATMENT GIVEN.
== END 2022-05-03 18:00 | disposition home or self-care (01) ==
PROVIDERS: PCP Nurse Practitioner Family; Visit Provider Orthopaedic Surgery
PROC: (CPT 29870; principal; 2022-05-03 12:10)
PROC: (CPT 27427; 2022-05-03 12:10)
DX: M23.52 Chronic instability of knee, left knee (principal); M22.42 Chondromalacia patellae, left knee
CPT/HCPCS: 27427; 29877; 73560; 76000; C1713; J0690; J1100; J1580; J2270; J2405; J2704; J3010; J3490; J7030

== ENCOUNTER → 2022-05-25 08:40 | Outpatient (BNVA) | payer MEDICAID, SELFPAY | PROVIDERS: PCP Nurse Practitioner Family; Visit Provider Orthopaedic Surgery | DX: Z98.890 Other specified postprocedural states (principal) | CPT/HCPCS: 73560; 99024 ==

== ENCOUNTER → 2022-06-29 07:32 | Outpatient (BNVA) | payer MEDICAID, SELFPAY | PROVIDERS: PCP Nurse Practitioner Family; Visit Provider Orthopaedic Surgery | DX: Z98.890 Other specified postprocedural states (principal) | CPT/HCPCS: 99024 ==

== ENCOUNTER → 2022-08-03 08:18 | Outpatient (BNVA) | payer MEDICAID, SELFPAY | PROVIDERS: PCP Nurse Practitioner Family; Visit Provider Orthopaedic Surgery | DX: M22.40 Chondromalacia patellae, unspecified knee (principal); Z47.89 Encounter for other orthopedic aftercare | CPT/HCPCS: 99212 ==

== ENCOUNTER 2023-01-02 13:42 | Emergency (ER) | payer MEDICAID, SELFPAY ==
[2023-01-02 13:42] VITALS: BP 133/86; PULSE 81; RESP 18; TEMP 36.8; O2SAT 95; BMI 45.1
--- NOTE | 2023-01-02 13:48 | XRR_ITS ---
PROCEDURE INFORMATION: Exam: XR Chest Exam date and time: 01/02/2023 2:03 PM Age: 32 years old Clinical indication: Cough and dyspnea; Additional info: Dyspnea/cough TECHNIQUE: Imaging protocol: Radiologic exam of the chest. Views: 1 view. COMPARISON: CT abdomen pelvis w con* [id number] 07/14/2021 10:48 AM FINDINGS: Lungs: Unremarkable. No consolidation. Pleural spaces: Unremarkable. No pleural effusion. No pneumothorax. Heart/Mediastinum: Unremarkable. No cardiomegaly. Bones/joints: Unremarkable. XR/XR chest 1V portable [id number] IMPRESSION: No acute findings.
--- NOTE | 2023-01-02 13:49 | ECG_ITS ---
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 Measurements Intervals [place] Rate: 89 P: 38 FL: 163 QRS: 18 QRSD: 81 T: 48 QT: 340 QTc: 414 Interpretive Statements SINUS RHYTHM No previous ECG available for comparison Electronically Signed On 01-02-2023 18:24:28 CDT by Cole Steele M.D. [id number]
--- NOTE | 2023-01-02 14:17 | W.ED.CHESTPA ---
HPI - Chest Pain General: Chief Complaint: Chest Pain Stated Complaint: CHEST PAIN; SOB Time Seen by Provider: 01/02/23 13:47 Source: patient Mode of arrival: ambulatory History of Present Illness: 32-year-old male who presents emergency room complaining of left-sided chest pain that began while he was doing some heavy lifting. Began just a few hours ago. No history of coronary disease patient does have some developmental delay. He is not diabetic does not smoke. No recent fever sweats chills cough or shortness of breath. MD complaint: chest pain Pertinent past history: coronary artery disease Onset (ago): hour(s) Timing of current episode: episodic Onset: during exertion Pain location: left chest Pain radiation: none Severity: mild Quality: aching Relieving factors: nothing Exacerbating factors: nothing Associated symptoms: Deny abdominal pain, diaphoresis, dyspnea, fever(s), leg edema, nausea, palpitations, sense of impending doom, syncope or vomiting Treatment prior to arrival: none Review of Systems Const: Denies: fever(s), chills or diaphoresis ENMT: Denies: throat pain, ear or mastoid pain, nasal discharge or nasal congestion Card: Reports: chest pain; Denies: palpitations, irregular heart rhythm, edema or syncope Resp: Denies: dyspnea GI: Denies: abdominal pain, nausea or vomiting : Denies: flank pain, dysuria, urinary frequency or urinary urgency Skin/Breast: Denies: rash or pruritus PFS ED PFSH: Medical History IBS (irritable bowel syndrome) Seasonal allergies Surgical History History of cholecystectomy History of colonoscopy Hx of appendectomy (~1996) Hx of knee surgery Family History Father Diabetes Hyperlipidemia Hypertension Stroke Heart disease Social History Smoking and tobacco status: never smoked Second hand smoke exposure: No Alcohol intake: never Substance/Drug Use: never Lives independently: No Household members: family Housing: House Marital status: Single service: No Current occupational status: disabled Current gender identity: Male Physical Exam Const: COMMON NORMALS: no acute distress GENERAL APPEARANCE: cooperative and comfortable ORIENTATION/CONSCIOUSNESS: Yes awake, Yes oriented to person, Yes oriented to place and Yes oriented to time HENMT: COMMON NORMALS: normocephalic, atraumatic and hearing grossly normal bilaterally HEAD & SCALP: normocephalic and atraumatic Resp: COMMON NORMALS: normal respiratory effort, No retractions, No use of accessory muscles and clear to auscultation bilaterally AUSCULTATION: clear to auscultation bilaterally Cardio: COMMON NORMALS: regular rate, regular rhythm and No murmurs present (Cardio) RATE: regular rate RHYTHM: regular rhythm GI: COMMON NORMALS: Soft to palpation and No hepatosplenomegaly present AUSCULTATION: Yes normoactive bowel sounds PALPATION: Yes Soft to palpation, No Tenderness to palpation present (GI), No Guarding due to palpation present (GI) and Yes No hepatosplenomegaly present Extremity: COMMON NORMALS: normal to inspection, capillary refill normal, no clubbing, cyanosis or edema, no calf tenderness and no pedal edema Neuro: SENSORIUM/ORIENTATION: Yes oriented to person, Yes oriented to place and Yes oriented to time Skin: COMMON NORMALS: no rashes or lesions noted GENERAL SKIN EXAM: no rashes or lesions noted Course Vital Signs: Vital signs: Vital Signs Temperature 98.3 F 01/02/23 13:42 Pulse Rate 64 01/02/23 15:22 Respiratory Rate 21 H 01/02/23 14:30 Blood Pressure 146/89 01/02/23 15:22 Pulse Oximetry 96 01/02/23 15:22 Oxygen Delivery Me thod Room Air 01/02/23 13:42 MDM - Chest Pain Medical Decision Making Symptoms began while patient was doing heavy lifting his symptoms are reproduced with palpation on the chest wall his troponin is normal and his EKG does not show any acute changes he has very few risk factors. We will discharge patient home follow-up with his primary care doctor return if is worsening or changes symptoms. Medical Records I reviewed the patient's medical records. Lab Data I reviewed the patient's lab results. 01/02/23 14:32 01/02/23 14:39 Radiology Impressions Chest X-Ray 01/02/23 13:48 IMPRESSION: No acute findings. Laboratory Results WBC 8.4 10^3/uL (4.0-10.0) 01/02/23 14: RBC 5.62 10^6/uL (4.1-5.3) H 01/02/23 14: Hgb 15.6 g/dL (11.7-16.6) 01/02/23 14: Hct 45.4 % (42.0-52.0) 01/02/23 14: MCV 80.8 fl (80-94) 01/02/23 14: MCH 27.8 pg (28.0-34.0) L 01/02/23 14: MCHC 34.4 g/dL (30.0-36.0) 01/02/23 14: RDW 12.5 % (12.1-15.1) 01/02/23 14: Plt Count 326 10^3/cmm (130-400) 01/02/23 14: MPV 9.9 fL (7.4-10.4) 01/02/23 14: Neut % (Auto) 74.3 % 01/02/23 14: Lymph % (Auto) 15.6 % 01/02/23 14:32 [place] % (Auto) 7.6 % 01/02/23 14: Eos % (Auto) 1.5 % 01/02/23 14: Baso % (Auto) 0.6 % 01/02/23 14: Neut # (Auto) 6.26 10^3/uL (1.8-7.7) 01/02/23 14: Lymph # (Auto) 1.3 10^3/uL (0.8-4.8) 01/02/23 14: [place] # (Auto) 0.6 10^3/uL (0.2-0.9) 01/02/23 14: Eos # (Auto) 0.1 10^3/uL (0.0-0.8) 01/02/23 14: Baso # (Auto) 0.1 10^3/uL (0.0-0.1) 01/02/23 14: Nucleated RBC % (auto) 0 % 01/02/23 14: Nucleated RBCs # 0.0 /100WBC 01/02/23 14: Sodium 141 mmol/L (136-145) 01/02/23 14:39 Potassium 4.5 mmol/L (3.5-5.1) 01/02/23 14:39 Chloride 107 mmol/L (98-107) 01/02/23 14:39 Carbon Dioxide 21 mmol/L (22-29) L 01/02/23 14:39 Anion Gap 17.5 (5-19) 01/02/23 14:39 BUN 15 mg/dL (6-20) 01/02/23 14:39 Creatinine 0.8 mg/dL (0.7-1.2) 01/02/23 14:39 GFR Calculation 110.7 mL/min (90-130) 01/02/23 14:39 Glucose 102 mg/dL (65-115) 01/02/23 14:39 Calculated Osmolality 293 mOsm/kg (285-295) 01/02/23 14:39 Calcium 9.5 mg/dL (8.5-10.5) 01/02/23 14:39 Total Bilirubin 0.5 mg/dL (0.15-1.2) 01/02/23 14:39 AST 18 U/L (0-40) 01/02/23 14:39 ALT 24 U/L (0-41) 01/02/23 14:39 Alkaline Phosphatase 97 U/L (40-130) 01/02/23 14:39 Troponin T Baseline 6 ng/L (0-15) 01/02/23 14:39 Total Protein 7.0 g/dL (6.6-8.7) 01/02/23 14:39 Albumin 4.5 g/dL (3.5-5.2) 01/02/23 14:39 Globulin 2.5 g/dL (1.3-4.6) 01/02/23 14:39 Discharge Plan Discharge Patient Disposition: Home Clinical Impression: Musculoskeletal chest pain Condition: Stable Prescriptions: No Action (DME) pair of crutches See Rx Instructions .Route .MEDSUPPLY Qty: 1 0RF Rx Instructions: As directed levocetirizine [Xyzal] 5 mg tablet 5 mg PO DAILY 90 Days Qty: 90 1RF naproxen 500 mg tablet 500 mg PO BID PRN (Reason: pain) Qty: 60 2RF albuterol sulfate [Ventolin HFA] 90 mcg/actuation HFA aerosol inhaler See Rx Instructions .ROUTE .COMPLEX Qty: 18 2RF Dose Instruction: INHALE TWO PUFFS BY MOUTH FOUR TIMES DAILY NEEDED SHORTNESS OF BREATH Rx Instructions: INHALE TWO PUFFS BY MOUTH FOUR TIMES DAILY NEEDED SHORTNESS OF BREATH Philomena 60 mg Tablet 60 mg PO BID PRN (Reason: Allergy Symptoms) Nexium 20 mg Capsule,Delayed Release(Dr/Ec) 20 mg PO DAILY PRN (Reason: Acid Reflux) gabapentin 300 mg capsule 300 mg PO BID PRN (Reason: Pain) Discharge Orders: Discharge ED (Routine); Ordered 01/02/23 Ordered By: Sharif Monte Referrals: Kristyn Garza FNP [Primary Care Provider] - Discharge Diet: Usual diet Discharge Activity: Increase activity as tolerated Patient Instructions: Opioid Safety, Pain Management Activity Restrictions/Additional Instructions: You are seen today for chest pain your cardiac enzymes and EKG were unremarkable. Based on your history and your physical exam it appears to be more musculoskeletal chest pain. You can take Tylenol or ibuprofen as needed follow-up with your primary care doctor if not improving. Coding Level of Care Code ED Head Of Commission Department for Hedy Mancuso
[2023-01-02 14:30] VITALS: PULSE 82; RESP 21; O2SAT 97
[2023-01-02 15:00] LABS: Basophils # 0.1 10^3/uL (0.0-0.1); Basophils % 0.6 %; Eosinophils # 0.1 10^3/uL (0.0-0.8); Eosinophils % 1.5 %; Hematocrit 45.4 % (42.0-52.0); Hemoglobin 15.6 g/dL (11.7-16.6); Lymphocytes # 1.3 10^3/uL (0.8-4.8); Lymphocytes % 15.6 %; Mean Corpuscular HGB Conc 34.4 g/dL (30.0-36.0); Mean Corpuscular Hemoglobin 27.8 pg (28.0-34.0); Mean Corpuscular Volume 80.8 fl (80-94); Mean Platelet Volume 9.9 fL (7.4-10.4); Monocytes # 0.6 10^3/uL (0.2-0.9); Monocytes % 7.6 %; Neutrophils # 6.26 10^3/uL (1.8-7.7); Neutrophils % 74.3 %; Nucleated Red Blood Cells % 0 %; Platelet Count 326 10^3/cmm (130-400); Red Blood Count 5.62 10^6/uL (4.1-5.3); Red Cell Distribution Width 12.5 % (12.1-15.1); White Blood Count 8.4 10^3/uL (4.0-10.0)
[2023-01-02 15:22] VITALS: BP 146/89; PULSE 64; O2SAT 96
[2023-01-02 15:23] LABS: Troponin(5th) Baseline 6 ng/L (0-15)
[2023-01-02 15:26] LABS: Alanine Aminotransferase 24 U/L (0-41); Albumin Level 4.5 g/dL (3.5-5.2); Alkaline Phosphatase 97 U/L (40-130); Anion Gap 17.5 (5-19); Aspartate Amino Transferase 18 U/L (0-40); Blood Urea Nitrogen 15 mg/dL (6-20); Calcium 9.5 mg/dL (8.5-10.5); Carbon Dioxide 21 mmol/L (22-29); Chloride 107 mmol/L (98-107); Globulin 2.5 g/dL (1.3-4.6); Glomerular Filtration Rate 110.7 mL/min (90-130); Glucose 102 mg/dL (65-115); Osmolality Calculated 293 mOsm/kg (285-295); Potassium 4.5 mmol/L (3.5-5.1); Sodium 141 mmol/L (136-145); Total Bilirubin 0.5 mg/dL (0.15-1.2)
== END 2023-01-02 15:47 | disposition home or self-care (01) ==
PROVIDERS: Emergency Provider Family Medicine; PCP Nurse Practitioner Family
DX: R07.89 Other chest pain (principal)
CPT/HCPCS: 36415; 71045; 80053; 84484; 85025; 93005; 99285

== ENCOUNTER → 2023-09-29 11:17 | Outpatient (BNVA) | payer MEDICAID, SELFPAY | PROVIDERS: PCP Nurse Practitioner Family; Visit Provider Nurse Practitioner Family | DX: M25.571 Pain in right ankle and joints of right foot (principal) | CPT/HCPCS: 73610 ==

== ENCOUNTER 2023-11-27 12:30 | Emergency (ER) | payer MEDICAID, SELFPAY ==
[2023-11-27 12:31] VITALS: BP 109/89; PULSE 92; RESP 15; TEMP 36.7; O2SAT 92; BMI 25.8
--- NOTE | 2023-11-27 12:37 | XRR_ITS ---
PROCEDURE INFORMATION: Exam: XR Left Knee Exam date and time: 11/27/2023 12:50 PM Age: 33 years old Clinical indication: Injury or trauma; Fall; Blunt trauma; Knee; Left TECHNIQUE: Imaging protocol: Radiologic exam of the left knee. Views: 3 views. COMPARISON: CR XR knee LT 1-2V [id number] 05/25/2022 8:40 AM FINDINGS: Bones/joints: Comminuted impacted and angulated fracture of proximal tibia involving medial and lateral tibial plateau and intercondylar eminence. Avulsion fracture superior aspect of medial femoral condyle. Fracture of proximal fibula cannot be excluded. Soft tissues: Normal. XR/XR knee LT 3V* [id number] IMPRESSION: Comminuted, impacted and angulated fracture of proximal tibia. Avulsion fracture superior medial aspect of medial femoral condyle.
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
--- NOTE | 2023-11-27 13:15 | CTR_ITS ---
PROCEDURE INFORMATION: Exam: CT Left Lower Extremity Without Contrast, Knee Exam date and time: 11/27/2023 1:39 PM Age: 33 years old Clinical indication: Injury or trauma; Fall; Blunt trauma; Left; Prior surgery; Surgery date: 6+ months; Surgery type: Lt knee TECHNIQUE: Imaging protocol: CT of the left lower extremity without contrast was performed. Exam focused on the knee. Radiation optimization: All CT scans at this facility use at least one of these dose optimization techniques: automated exposure control; mA and/or kV adjustment per patient size (includes targeted exams where dose is matched to clinical indication); or iterative reconstruction. COMPARISON: CR (LOW EXM, ) 11/27/2023 12:50 PM RADIATION DOSE METRICS: Total DLP (mGy-cm): 590.03 FINDINGS: Bones/joints: Comminuted, impacted displaced fracture of proximal tibia. Comminuted fracture of lateral tibial plateau, fragments are displaced posteriorly and laterally with posterior component angulated obliquely. Anterior component is displaced inferiorly from joint line by 7 mm. Posteriorly displacement by 8 mm between fracture components. Fracture involves intercondylar eminence. Medial tibial plateau component is angulated medially and displaced inferiorly. Minimal cystic changes of proximal shaft of tibia with minimal sclerotic changes noted. Postop changes of distal femur with cortical tunnel. There is a well corticated osseous density along the superomedial aspect of the medial femoral condyle, chronic fracture/postop change. There is no acute fracture of distal femur. Moderate tricompartment osteoarthritic changes noted. No patellar fracture identified. No fracture of fibula identified. Soft tissues: Lipohemarthrosis. No soft tissue air. No radiopaque foreign body. CT/CT knee LT wo con* [id number] IMPRESSION: 1. Comminuted, impacted, displaced and angulated fracture of proximal tibia involving medial and lateral tibial plateau and intercondylar eminence. 2. Postop changes of distal shaft of femur with chronic fracture/bone fragment adjacent to proximal medial femoral condyle. No acute fracture of femur, patella lower fibula identified. 3. Suggestion of vague sclerotic lesion in proximal shaft of tibia, involved by the fracture. 4. Lipohemarthrosis. No soft tissue air. No radiopaque foreign body.
[2023-11-27] MEDS: HYDROmorphone 1 mg/mL INJ 1 mL IVP ×2 (13:47→15:17)
[2023-11-27 13:56] LABS: Basophils # 0.1 10^3/uL (0.0-0.1); Basophils % 0.5 %; Eosinophils # 0.1 10^3/uL (0.0-0.8); Eosinophils % 0.5 %; Hematocrit 45.6 % (37-53); Lymphocytes # 1.2 10^3/uL (0.8-4.8); Lymphocytes % 6.9 %; Mean Corpuscular HGB Conc 33.3 g/dL (30-55); Mean Corpuscular Hemoglobin 27.6 pg (27-33); Mean Corpuscular Volume 82.8 fl (82-101); Mean Platelet Volume 9.7 fL (7.4-10.4); Monocytes # 0.9 10^3/uL (0.2-0.9); Monocytes % 5.1 %; Neutrophils # 15.14 10^3/uL (1.8-7.7); Neutrophils % 86.2 %; Nucleated Red Blood Cells % 0 %; Platelet Count 325 10^3/cmm (157-399); Red Blood Count 5.51 10^6/uL (3.85-5.65); Red Cell Distribution Width 13.1 % (12.1-15.1); White Blood Count 17.57 10^3/uL (3.29-11.43)
[2023-11-27 14:00] VITALS: BP 137/75; PULSE 109; RESP 13; O2SAT 90
[2023-11-27 14:14] LABS: Blood Urea Nitrogen 18 mg/dL (6-20); Calcium 9.1 mg/dL (8.5-10.5); Carbon Dioxide 25 mmol/L (22-29); Chloride 105 mmol/L (98-107); Creatinine Clr Calc Pharmacy 123.8916; Glucose 137 mg/dL (65-115); Osmolality Calculated 296 mOsm/kg (285-295); Sodium 141 mmol/L (136-145)
[2023-11-27 15:01] VITALS: BP 131/87; PULSE 109; RESP 16; O2SAT 92
[2023-11-27 15:20] VITALS: BP 131/87; PULSE 109; RESP 16; O2SAT 92
== END 2023-11-27 15:20 | disposition short-term general hospital (02) ==
PROVIDERS: Emergency Provider Emergency Medicine; PCP Nurse Practitioner Family
DX: S82.142A Displaced bicondylar fracture of left tibia, initial encounter for closed fracture (principal); V19.3XXA Pedal cyclist (driver) (passenger) injured in unspecified nontraffic accident, initial encounter
CPT/HCPCS: 29530; 36415; 73562; 73700; 80048; 85025; 96374; 96376; 99285; J1170

== ENCOUNTER 2024-01-03 11:28 | Outpatient (RCR) | payer SELFPAY | END 2024-01-21 23:59 | disposition home or self-care (01) | LOC: SPT 11:28 | PROVIDERS: PCP Nurse Practitioner Family; Visit Provider Orthopaedic Surgery Orthopaedic Trauma | DX: S82.142D Displaced bicondylar fracture of left tibia, subsequent encounter for closed fracture with routine healing (principal); X58.XXXD Exposure to other specified factors, subsequent encounter | CPT/HCPCS: 97110; 97161; 97530 ==

== ENCOUNTER 2024-01-22 06:00 | Outpatient (RCR) | payer MEDICAID, SELFPAY | END 2024-02-20 23:59 | disposition home or self-care (01) | LOC: SPT 06:00 | PROVIDERS: PCP Nurse Practitioner Family; Visit Provider Orthopaedic Surgery Orthopaedic Trauma | DX: S82.142D Displaced bicondylar fracture of left tibia, subsequent encounter for closed fracture with routine healing (principal); X58.XXXD Exposure to other specified factors, subsequent encounter | CPT/HCPCS: 97110; 97530 ==

== ENCOUNTER → 2024-02-14 11:51 | Outpatient (BNVA) | payer MEDICAID, SELFPAY | PROVIDERS: PCP Nurse Practitioner Family; Visit Provider Nurse Practitioner Family | DX: J02.9 Acute pharyngitis, unspecified (principal); R05.9 Cough, unspecified | CPT/HCPCS: 87071; 87426; 87880 ==

== ENCOUNTER 2024-02-21 06:30 | Outpatient (RCR) | payer MEDICAID, SELFPAY | END 2024-03-22 23:59 | disposition home or self-care (01) | LOC: SPT 06:30 | PROVIDERS: PCP Nurse Practitioner Family; Visit Provider Orthopaedic Surgery Orthopaedic Trauma | DX: S82.142D Displaced bicondylar fracture of left tibia, subsequent encounter for closed fracture with routine healing (principal); X58.XXXD Exposure to other specified factors, subsequent encounter | CPT/HCPCS: 97110; 97530 ==

== ENCOUNTER 2024-03-23 06:00 | Outpatient (RCR) | payer MEDICAID, SELFPAY | END 2024-04-21 23:59 | disposition home or self-care (01) | LOC: SPT 06:00 | PROVIDERS: PCP Nurse Practitioner Family; Visit Provider Orthopaedic Surgery Orthopaedic Trauma | DX: S82.142D Displaced bicondylar fracture of left tibia, subsequent encounter for closed fracture with routine healing (principal); X58.XXXD Exposure to other specified factors, subsequent encounter | CPT/HCPCS: 97110; 97530 ==

== ENCOUNTER 2024-04-22 06:00 | Outpatient (RCR) | payer MEDICAID, SELFPAY | END 2024-05-22 23:59 | disposition home or self-care (01) | LOC: SPT 06:00 | PROVIDERS: PCP Nurse Practitioner Family; Visit Provider Orthopaedic Surgery Orthopaedic Trauma | DX: S82.142D Displaced bicondylar fracture of left tibia, subsequent encounter for closed fracture with routine healing (principal); X58.XXXD Exposure to other specified factors, subsequent encounter | CPT/HCPCS: 97110; 97530 ==

== ENCOUNTER 2024-04-22 19:46 | Emergency (ER) | payer MEDICAID, SELFPAY ==
[2024-04-22 19:47] VITALS: BP 143/83; PULSE 66; RESP 19; TEMP 36.9; O2SAT 95; BMI 24.3
--- NOTE | 2024-04-22 20:14 | CTR_ITS ---
PROCEDURE INFORMATION: Exam: CT Abdomen And Pelvis With Contrast Exam date and time: 04/22/2024 8:47 PM Age: 34 years old Clinical indication: Abdominal pain; Localized; Left lower quadrant (llq); Prior surgery; Surgery date: 6+ months; Surgery type: Gb. Appy; Patient HX: C/O llq pain TECHNIQUE: Imaging protocol: Computed tomography of the abdomen and pelvis with contrast. Radiation optimization: All CT scans at this facility use at least one of these dose optimization techniques: automated exposure control; mA and/or kV adjustment per patient size (includes targeted exams where dose is matched to clinical indication); or iterative reconstruction. Contrast material: OMNI 350; Contrast volume: 100 ml; Contrast route: INTRAVENOUS (IV); COMPARISON: CT abdomen pelvis w con* [id number] 07/14/2021 10:48 AM RADIATION DOSE METRICS: Total DLP (mGy-cm): 942.18 FINDINGS: Liver: Hepatic steatosis. Gallbladder and biliary ducts: Cholecystectomy. Pancreas: Normal. No ductal dilation. Spleen: Normal. No splenomegaly. Adrenal glands: Normal. No mass. Kidneys and ureters: Normal. No hydronephrosis. Stomach and bowel: Prominent fluid in the small bowel without dilation may reflect an enteritis. Moderate constipation. Minimal diverticulosis without diverticulitis. Appendix: No evidence of appendicitis. Intraperitoneal space: Unremarkable. No free air. No significant fluid collection. Vasculature: Unremarkable. No abdominal aortic aneurysm. Lymph nodes: Unremarkable. No enlarged lymph nodes. Urinary bladder: Unremarkable as visualized. Reproductive: Unremarkable as visualized. Bones/joints: Unremarkable. No acute fracture. Soft tissues: Left inguinal hernia containing omentum without bowel. CT/CT abdomen pelvis w con* [id number] IMPRESSION: 1. Prominent fluid in the small bowel without dilation may reflect an enteritis. 2. Left inguinal hernia containing omentum without bowel. 3. Hepatic steatosis. 4. Cholecystectomy. 5. Moderate constipation. 6. Minimal diverticulosis without diverticulitis.
--- NOTE | 2024-04-22 20:16 | W.ED.ABDPA2 ---
HPI - Abdominal Pain General: Chief Complaint: Abdominal Pain Stated Complaint: abd pain Time Seen by Provider: 04/22/24 19:48 History of Present Illness: 34-year-old male with a history of cholecystectomy and appendectomy. He presents with left lower quadrant pain that started this afternoon. He has been nauseated. No vomiting or diarrhea. No blood in the stool. The patient is anticoagulated following a PE he developed a few months ago after knee surgery. He denies fever. Related Data Home Medications Medication Instructions Recorded Confirmed esomeprazole magnesium 20 mg 20 mg PO DAILY PRN Acid Reflux 01/02/23 02/14/24 capsule,delayed release (Nexium) fexofenadine 60 mg tablet 60 mg PO BID PRN Allergy Symptoms 01/02/23 02/14/24 gabapentin 300 mg capsule 300 mg PO BID PRN Pain 01/02/23 02/14/24 Previous Rx's Medication Instructions Recorded levocetirizine 5 mg tablet (Xyzal) 5 mg PO DAILY 90 days #90 tabs 09/25/21 pair of crutches #1 ea 04/01/22 cyclobenzaprine 10 mg tablet See Rx Instructions .Route 04/13/23 .COMPLEX #30 tabs apixaban 5 mg tablet (Eliquis) 5 mg PO BID #180 tabs 12/19/23 triamcinolone acetonide 0.1 % 1 applic topical BID 14 days #80 01/04/24 topical cream grams albuterol sulfate 90 mcg/actuation See Rx Instructions .Route 01/06/24 aerosol inhaler (Ventolin HFA) .COMPLEX #18 grams dicyclomine 10 mg capsule 10 mg PO TID PRN abdominal pain 01/06/24 #30 caps ketorolac 10 mg tablet 10 mg PO TID PRN pain #10 tabs 04/22/24 ondansetron 4 mg disintegrating 4 mg PO QID PRN nausea and 04/22/24 tablet vomiting #20 tabs Allergies Allergy/AdvReac Type Severity Reaction Status Date / Time No Known Allergies Allergy Verified 02/14/24 10:57 [facility] ED PFS: Medical History IBS (irritable bowel syndrome) Seasonal allergies Surgical History History of colonoscopy History of cholecystectomy Hx of appendectomy (~1996) Hx of knee surgery Family History Father Diabetes Hyperlipidemia Hypertension Stroke Heart disease Social History Smoking and tobacco/nicotine status: never used tobacco/nicotine Second hand smoke exposure: No Alcohol intake: never Substance/Drug Use: never Lives independently: No Household members: family Housing: House Marital status: Single service: No Current occupational status: disabled Current gender identity: Male Physical Exam Const: COMMON NORMALS: no acute distress GENERAL APPEARANCE: cooperative HENMT: COMMON NORMALS: normocephalic, atraumatic and Normal external nose present HEAD & SCALP: normocephalic and atraumatic FACE & SINUS: normal facial exam and face symmetric NOSE: Normal external nose present Eye: COMMON NORMALS: Equal, round and reactive pupils present and EOMs intact bilaterally PUPIL: Yes Equal, round and reactive pupils present Neck/C-Spine: GENERAL: Yes trachea midline Chest: CHEST: Yes Symmetrical chest wall rise Resp: COMMON NORMALS: normal respiratory effort, No retractions, No use of accessory muscles and clear to auscultation bilaterally AUSCULTATION: clear to auscultation bilaterally Cardio: COMMON NORMALS: regular rate and regular rhythm RATE: regular rate RHYTHM: regular rhythm GI: COMMON NORMALS: Normal to inspection, nondistended, normoactive bowel sounds present PALPATION: Yes Tenderness to palpation present (GI) Details: LLQ and Yes Guarding due to palpation present (GI) Extremity: COMMON NORMALS: no pedal edema Neuro: DEMIAN COMA SCALE: document GCS findings Rock coma scale eye opening: Spontaneous Rock coma scale verbal response: Orientated Rock coma scale motor response: Obey commands Demian coma scale total score: 15 SENSORY EXAM: Yes extremities (intact) Psych: COMMON NORMALS: speech normal SPEECH: Yes normal speech Skin: COMMON NORMALS: no rashes or lesions noted GENERAL SKIN EXAM: no rashes or lesions noted Course Vital Signs: Vital signs: Vital Signs Temperature 98.5 F 04/22/24 19:47 Pulse Rate 63 04/22/24 22:18 Respiratory Rate 16 04/22/24 22:00 Blood Pressure 130/74 04/22/24 22:18 Pulse Oximetry 95 04/22/24 22:18 Oxygen Delivery Me thod Room Air 12/01/24 20:54 MDM - Abdominal Pain Medical Decision Making 34-year-old male with left lower quadrant pain normal white count. Vitals are stable. He is afebrile. Urinalysis is negative. CRP is 3. CT shows prominent fluid in the small bowel without dilatation reflecting a likely enteritis. He will be treated symptomatically. Return for worsening symptoms. Lab Data 04/22/24 20:04 04/22/24 20:04 Labs/Radiology: Radiology Impressions Abdomen/Pelvis CT 04/22/24 20:14 IMPRESSION: 1. Prominent fluid in the small bowel without dilation may reflect an enteritis. 2. Left inguinal hernia containing omentum without bowel. 3. Hepatic steatosis. 4. Cholecystectomy. 5. Moderate constipation. 6. Minimal diverticulosis without diverticulitis. Laboratory Results WBC 7.43 10^3/uL (3.29-11.43) 04/22/24 20:04 RBC 5.36 10^6/uL (3.85-5.65) 04/22/24 20:04 Hgb 13.90 g/dL (11.27-16.99) 04/22/24 20:04 Hct 42.5 % (37-53) 04/22/24 20:04 MCV 79.3 fl (82-101) L 04/22/24 20:04 MCH 25.9 pg (27-33) L 04/22/24 20:04 MCHC 32.7 g/dL (30-55) 04/22/24 20:04 RDW 14.5 % (12.1-15.1) 04/22/24 20:04 Plt Count 348 10^3/cmm (157-399) 04/22/24 20:04 MPV 10.1 fL (7.4-10.4) 04/22/24 20:04 Neut % (Auto) 56.7 % 04/22/24 20:04 Lymph % (Auto) 27.3 % 04/22/24 20:04 [place] % (Auto) 10.6 % 04/22/24 20:04 Eos % (Auto) 4.2 % 04/22/24 20:04 Baso % (Auto) 0.9 % 04/22/24 20:04 Neut # (Auto) 4.21 10^3/uL (1.8-7.7) 04/22/24 20:04 Lymph # (Auto) 2.0 10^3/uL (0.8-4.8) 04/22/24 20:04 [place] # (Auto) 0.8 10^3/uL (0.2-0.9) 04/22/24 20:04 Eos # (Auto) 0.3 10^3/uL (0.0-0.8) 04/22/24 20:04 Baso # (Auto) 0.1 10^3/uL (0.0-0.1) 04/22/24 20:04 Nucleated RBC % (auto) 0 % 04/22/24 20:04 Nucleated RBCs # 0.0 /100WBC 04/22/24 20:04 Sodium 139 mmol/L (136-145) 04/22/24 20:04 Potassium 4.2 mmol/L (3.5-5.1) 04/22/24 20:04 Chloride 104 mmol/L (98-107) 04/22/24 20:04 Carbon Dioxide 25 mmol/L (22-29) 04/22/24 20:04 Anion Gap 14.2 (5-19) 04/22/24 20:04 BUN 19 mg/dL (6-20) 04/22/24 20:04 Creatinine 0.8 mg/dL (0.7-1.2) 04/22/24 20:04 GFR Calculation 109.4 mL/min (90-130) 04/22/24 20:04 Glucose 100 mg/dL (65-115) 04/22/24 20:04 Calculated Osmolality 290 mOsm/kg (285-295) 04/22/24 20:04 Calcium 9.1 mg/dL (8.5-10.5) 04/22/24 20:04 Total Bilirubin 0.3 mg/dL (0.15-1.2) 04/22/24 20:04 AST 18 U/L (0-40) 04/22/24 20:04 ALT 28 U/L (0-41) 04/22/24 20:04 Alkaline Phosphatase 142 U/L (40-130) H 04/22/24 20:04 C-Reactive Protein 3.0 mg/L (0.0-4.9) 04/22/24 20:04 Total Protein 6.9 g/dL (6.6-8.7) 04/22/24 20:04 Albumin 4.2 g/dL (3.5-5.2) 04/22/24 20:04 Globulin 2.7 g/dL (1.3-4.6) 04/22/24 20:04 Urine Color Yellow (Yellow) 04/22/24 21:30 Urine Appearance Clear (CLEAR) 04/22/24 21:30 Urine pH 6.0 (5-7) 04/22/24 21:30 Ur Specific [place] 1.055 (1.005-1.030) H 04/22/24 21:30 Urine Protein Negative (Negative) 04/22/24 21:30 Urine Glucose (UA) Negative (Normal) 04/22/24 21:30 Urine Ketones Negative (Negative) 04/22/24 21:30 Urine Blood Negative (Negative) 04/22/24 21:30 Urine Nitrate Negative (Negative) 04/22/24 21:30 Urine Bilirubin Negative (Negative) 04/22/24 21:30 Urine Urobilinogen 1.0 mg/dL (Negative) 04/22/24 21:30 Ur Leukocyte Esterase Negative (Negative) 04/22/24 21:30 Urine RBC 0-2 /hpf (0-2) 04/22/24 21:30 Urine WBC 0-5 /hpf (0-5) 04/22/24 21:30 Ur Squamous Epith Cells 0-5 /hpf (0-5) 04/22/24 21:30 Amorphous Sediment Not Reportable 04/22/24 21:30 Urine Bacteria None seen /hpf (NONE) 04/22/24 21:30 Hyaline Casts 0-4 /lpf H 04/22/24 21:30 All radiology interpretation(s) finalized by discharge Discharge Plan Discharge Patient Disposition: Home Clinical Impression: Enteritis Condition: Stable Prescriptions: New ketorolac 10 mg tablet 10 mg PO TID PRN (Reason: pain) Qty: 10 0RF Continued ondansetron 4 mg tablet,disintegrating 4 mg PO QID PRN (Reason: nausea and vomiting) Qty: 20 0RF Discontinued naproxen 500 mg tablet 500 mg PO BID PRN (Reason: pain) Qty: 60 2RF No Action (DME) pair of crutches See Rx Instructions .Route .MEDSUPPLY Qty: 1 0RF Rx Instructions: As directed Eliquis 5 mg tablet 5 mg PO BID Qty: 180 1RF levocetirizine [Xyzal] 5 mg tablet 5 mg PO DAILY 90 Days Qty: 90 1RF cyclobenzaprine 10 mg tablet See Rx Instructions .ROUTE .COMPLEX Qty: 30 0RF Dose Instruction: TAKE ONE TABLET BY MOUTH THREE TIMES DAILY NEEDED FOR MUSCLE SPASM. Rx Instructions: TAKE ONE TABLET BY MOUTH THREE TIMES DAILY NEEDED FOR MUSCLE SPASM. triamcinolone acetonide 0.1 % cream 1 applic topical BID 14 Days Qty: 80 0RF dicyclomine 10 mg capsule 10 mg PO TID PRN (Reason: abdominal pain) Qty: 30 2RF albuterol sulfate [Ventolin HFA] 90 mcg/actuation HFA aerosol inhaler See Rx Instructions .ROUTE .COMPLEX Qty: 18 2RF Dose Instruction: INHALE TWO PUFFS BY MOUTH FOUR TIMES DAILY NEEDED SHORTNESS OF BREATH Rx Instructions: INHALE TWO PUFFS BY MOUTH FOUR TIMES DAILY NEEDED SHORTNESS OF BREATH Philomena 60 mg Tablet 60 mg PO BID PRN (Reason: Allergy Symptoms) Nexium 20 mg Capsule,Delayed Release(Dr/Ec) 20 mg PO DAILY PRN (Reason: Acid Reflux) gabapentin 300 mg capsule 300 mg PO BID PRN (Reason: Pain) Discharge Orders: Discharge ED (Routine); Ordered 04/22/24 Ordered By: Marcus Cardenas Referrals: Kristyn Garza, RUBY [Primary Care Provider] - 1-3 days Patient Instructions: Enteritis (ED), Opioid Safety, Pain Management Activity Restrictions/Additional Instructions: Follow a liquid diet for the first 24 hours. Take prescribed nausea medication every 4 hours while awake for the first 24 hours whether you feel you needed or not, then use it as needed for nausea. You may advance your diet as tolerated. Use medication as directed for pain if needed. Return for problems. Coding Level of Care Code ED Furrier Designer for Hedy Mancuso
[2024-04-22 20:19] LABS: Basophils # 0.1 10^3/uL (0.0-0.1); Basophils % 0.9 %; Eosinophils # 0.3 10^3/uL (0.0-0.8); Eosinophils % 4.2 %; Hematocrit 42.5 % (37-53); Lymphocytes % 27.3 %; Mean Corpuscular HGB Conc 32.7 g/dL (30-55); Mean Corpuscular Hemoglobin 25.9 pg (27-33); Mean Corpuscular Volume 79.3 fl (82-101); Mean Platelet Volume 10.1 fL (7.4-10.4); Monocytes # 0.8 10^3/uL (0.2-0.9); Monocytes % 10.6 %; Neutrophils # 4.21 10^3/uL (1.8-7.7); Neutrophils % 56.7 %; Nucleated Red Blood Cells % 0 %; Platelet Count 348 10^3/cmm (157-399); Red Blood Count 5.36 10^6/uL (3.85-5.65); Red Cell Distribution Width 14.5 % (12.1-15.1); White Blood Count 7.43 10^3/uL (3.29-11.43)
[2024-04-22] MEDS: morphine 4 mg/mL SDV 1 mL IVP (20:21)
[2024-04-22] MEDS: ondansetron 2 mg/ML SDV 2 mL 4 MG IVP (20:21)
[2024-04-22] MEDS: ketorolac 30 mg/mL INJ IVP (20:21)
[2024-04-22 20:43] LABS: Alanine Aminotransferase 28 U/L (0-41); Albumin Level 4.2 g/dL (3.5-5.2); Alkaline Phosphatase 142 U/L (40-130); Blood Urea Nitrogen 19 mg/dL (6-20); Calcium 9.1 mg/dL (8.5-10.5); Carbon Dioxide 25 mmol/L (22-29); Chloride 104 mmol/L (98-107); Creatinine Clr Calc Pharmacy 134.7746; Globulin 2.7 g/dL (1.3-4.6); Glomerular Filtration Rate 109.4 mL/min (90-130); Glucose 100 mg/dL (65-115); Osmolality Calculated 290 mOsm/kg (285-295); Sodium 139 mmol/L (136-145); Total Bilirubin 0.3 mg/dL (0.15-1.2); Total Protein 6.9 g/dL (6.6-8.7)
[2024-04-22 20:48] LABS: Anion Gap 14.2 (5-19); Aspartate Amino Transferase 18 U/L (0-40); Potassium 4.2 mmol/L (3.5-5.1)
[2024-04-22] MEDS: iohexol 350 mg/mL 500 mL Btl (per mL) IV (20:48)
[2024-04-22 20:54] VITALS: BP 144/71; PULSE 70; RESP 16; O2SAT 97
[2024-04-22 21:39] LABS: Bilirubin Urine Negative (Negative); Blood Urine Negative (Negative); Glucose Urine UA Negative (Normal); Ketones Urine Negative (Negative); Leukocyte Esterase Urine Negative (Negative); Nitrate Urine Negative (Negative); Protein Urine Negative (Negative); Urine Appearance Clear (CLEAR); Urine Color Yellow (Yellow)
[2024-04-22 21:41] LABS: Add Urine Microscopic? YES; Bacteria Urine None Seen /hpf; Hyaline Casts Urine 0-4 /lpf; RBC Urine 0-2 /hpf (0-2); Squamous Epithelial Cell Urine 0-5 /hpf (0-5); WBC Urine 0-5 /hpf (0-5)
[2024-04-22 21:45] LABS: Specific Gravity, Urine 1.055 (1.005-1.030)
[2024-04-22 21:48] VITALS: BP 150/79; PULSE 67; RESP 16; O2SAT 94
[2024-04-22 22:00] VITALS: PULSE 60; RESP 16; O2SAT 95
[2024-04-22 22:18] VITALS: BP 130/74; PULSE 63; O2SAT 95
== END 2024-04-22 22:19 | disposition home or self-care (01) ==
PROVIDERS: Emergency Provider Emergency Medicine; PCP Nurse Practitioner Family
DX: K52.9 Noninfective gastroenteritis and colitis, unspecified (principal); Z79.01 Long term (current) use of anticoagulants
CPT/HCPCS: 74177; 80053; 81001; 85025; 86140; 96374; 96375; 99285; J1885; J2270; J2405

== ENCOUNTER 2024-05-01 20:05 | Emergency (ER) | payer MEDICAID, SELFPAY ==
[2024-05-01 20:10] VITALS: BP 120/76; PULSE 104; RESP 16; TEMP 36.8; O2SAT 96
--- NOTE | 2024-05-01 21:02 | XRR_ITS ---
PROCEDURE INFORMATION: Exam: XR Left Knee Exam date and time: 05/01/2024 9:06 PM Age: 34 years old Clinical indication: Pain; Left; Prior surgery; Surgery date: 1-6 months; Surgery type: Lt knee; Additional info: Pain today, previous surgery TECHNIQUE: Imaging protocol: Radiologic exam of the left knee. Views: 3 views. COMPARISON: CT knee LT wo con* [id number] 11/27/2023 1:39 PM FINDINGS: Bones/joints: Stable calcification of the origin of the medial collateral ligament suggesting a Tamika-Stieda lesion and indicative of remote trauma. Patient has had interval ORIF of a comminuted intra-articular fracture of the left tibia. The alignment is anatomic. No evidence for loosening of the surgical hardware. A faint fracture line is still visible. Moderate degenerative changes at the left knee, most pronounced at the lateral compartment. This may be due at least in part to prior trauma. Subtle area of subchondral lucency with associated sclerosis at the lateral femoral condyle suspicious for an osteochondral lesion. No joint effusion. No acute fracture. No dislocation. Soft tissues: No soft tissue swelling or soft tissue emphysema. No radiopaque foreign body. XR/XR knee LT 3V* [id number] IMPRESSION: 1. Patient has had interval ORIF of a comminuted intra-articular fracture of the left tibia. The alignment is anatomic. No evidence for loosening of the surgical hardware. A faint fracture line is still visible. 2. Subtle area of subchondral lucency with associated sclerosis at the lateral femoral condyle suspicious for an osteochondral lesion. 3. Stable calcification of the origin of the medial collateral ligament suggesting a Tamika-Stieda lesion and indicative of remote trauma. 4. Moderate degenerative changes at the left knee, most pronounced at the lateral compartment. This may be due at least in part to prior trauma. 5. Incidental/nonacute findings are listed in the report.
--- NOTE | 2024-05-01 21:10 | W.ED.EXTPRO ---
HPI - Extremity Problem General: Chief complaint: Extremity Problem,Nontraumatic Stated complaint: Left leg severe pain (surgery on it in 5 months) Time Seen by Provider: 05/01/24 20:57 Source: patient Mode of arrival: ambulatory Limitations: no limitations History of Present Illness: Patient is a 34-year-old male who presents to the emergency department complaining of anterior left knee pain beginning today. Back in November, patient had a comminuted, impacted displaced fracture of the proximal tibia that required transfer to facility with vascular surgeon. Had it repaired, has had on and off pain since but today reports sudden onset of pain directly over the left tibial tubercle. He has been able to walk still. No distal sensory changes, skin color changes, or neurological deficit. No fever, nausea/vomiting, or other signs of systemic illness. He currently is on apixaban for anticoagulation. No new trauma. Reports taking ibuprofen for pain. MD Complaint: joint pain Onset (ago): hour(s) Pain Consistency: constant Location: left and knee Relieving factors: nothing Exacerbating factors: weight bearing and walking Associated symptoms: Deny chest pain, fever(s) or rash Related Data Home Medications Medication Instructions Recorded Confirmed esomeprazole magnesium 20 mg 20 mg PO DAILY PRN Acid Reflux 01/02/23 02/14/24 capsule,delayed release (Nexium) fexofenadine 60 mg tablet 60 mg PO BID PRN Allergy Symptoms 01/02/23 02/14/24 gabapentin 300 mg capsule 300 mg PO BID PRN Pain 01/02/23 02/14/24 Previous Rx's Medication Instructions Recorded levocetirizine 5 mg tablet (Xyzal) 5 mg PO DAILY 90 days #90 tabs 09/25/21 pair of crutches #1 ea 04/01/22 cyclobenzaprine 10 mg tablet See Rx Instructions .Route 04/13/23 .COMPLEX #30 tabs apixaban 5 mg tablet (Eliquis) 5 mg PO BID #180 tabs 12/19/23 triamcinolone acetonide 0.1 % 1 applic topical BID 14 days #80 01/04/24 topical cream grams albuterol sulfate 90 mcg/actuation See Rx Instructions .Route 01/06/24 aerosol inhaler (Ventolin HFA) .COMPLEX #18 grams dicyclomine 10 mg capsule 10 mg PO TID PRN abdominal pain 01/06/24 #30 caps ketorolac 10 mg tablet 10 mg PO TID PRN pain #10 tabs 04/22/24 ondansetron 4 mg disintegrating 4 mg PO QID PRN nausea and 04/22/24 tablet vomiting #20 tabs triamcinolone acetonide 0.5 % 1 applic topical BID #15 grams 05/01/24 topical ointment Allergies Allergy/AdvReac Type Severity Reaction Status Date / Time No Known Allergies Allergy Verified 05/01/24 20:16 Review of Systems General: Reports: 10 or more systems reviewed and unremarkable except in HPI and below Const: Denies: fever(s) or chills Card: Denies: chest pain Resp: Denies: dyspnea or productive cough GI: Denies: abdominal pain, nausea, vomiting or diarrhea : Denies: flank pain Musc: Reports: joint pain (Left knee); Denies: neck pain, back pain, extremity pain, extremity swelling, joint swelling, joint redness, joint warmth, limited range of motion or muscle weakness Skin/Breast: Denies: rash Neuro: Denies: headache(s), numbness in extremities or weakness in extremities PFSH ED PFSH: Medical History IBS (irritable bowel syndrome) Seasonal allergies Surgical History History of colonoscopy History of cholecystectomy Hx of appendectomy (~1996) Hx of knee surgery Family History Father Diabetes Hyperlipidemia Hypertension Stroke Heart disease Social History Smoking and tobacco/nicotine status: never used tobacco/nicotine Second hand smoke exposure: No Alcohol intake: never Substance/Drug Use: never Lives independently: No Household members: family Housing: House Marital status: Single service: No Current occupational status: disabled Current gender identity: Male Physical Exam Const: COMMON NORMALS: no acute distress, patient oriented x3, no limitations, healthy appearing, alert and well nourished HENMT: COMMON NORMALS: normocephalic and atraumatic HEAD & SCALP: normocephalic and atraumatic Neck/C-Spine: COMMON NORMALS: full ROM, supple and no meningeal signs Resp: COMMON NORMALS: normal respiratory effort, No use of accessory muscles and clear to auscultation bilaterally AUSCULTATION: clear to auscultation bilaterally Cardio: COMMON NORMALS: regular rate and regular rhythm RATE: regular rate RHYTHM: regular rhythm Extremity: NARRATIVE EXTREMITY EXAM: Multiple postoperative scars overlying left knee joint. Full active and passive range of motion at the left knee. No popliteal tenderness or calf tenderness. Mild reproducible tenderness over the left tibial tubercle. No obvious bruising and no severe swelling compared to the right. Pulses intact distally with no overlying pallor. No paresthesias. Good strength. Neuro: COMMON NORMALS: patient oriented x3, moves all extremities, no focal motor deficits and no sensory deficits noted SENSORIUM/ORIENTATION: Yes alert MENINGEAL SIGNS: Yes no meningeal signs Skin: NARRATIVE SKIN EXAM: Chronic eczematous appearing skin changes over anterior left lower leg Course Vital Signs: Vital signs: Vital Signs Temperature 98.3 F 05/01/24 20:10 Pulse Rate 99 05/01/24 21:26 Respiratory Rate 16 05/01/24 20:10 Blood Pressure 147/90 05/01/24 21:26 Pulse Oximetry 98 05/01/24 21:26 Oxygen Delivery Me thod Room Air 05/01/24 21:26 MDM - Extremity (Nontraumatic) Medical Decision Making Patient presented with postoperative pain in his left knee. Physical exam showed mild reducible tenderness to palpation over the left tibial tubercle, there were no physical exam signs of DVT with no neurological or neurovascular complaints distally. No new trauma to report. X-ray showing a lot of postoperative changes, specifically though no abnormalities with his hardware. Also he had concerns of the rash developing over the left anterior veliz that does appear to be eczematous, we will try a topical steroid at this time. Instructed him to closely follow-up with orthopedics and his primary care provider for general reevaluation. He does note relief of his pain after [place]. Proper return precautions given. Lab Data Radiology Impressions Knee X-Ray 05/01/24 21:02 IMPRESSION: 1. Patient has had interval ORIF of a comminuted intra-articular fracture of the left tibia. The alignment is anatomic. No evidence for loosening of the surgical hardware. A faint fracture line is still visible. 2. Subtle area of subchondral lucency with associated sclerosis at the lateral femoral condyle suspicious for an osteochondral lesion. 3. Stable calcification of the origin of the medial collateral ligament suggesting a Tamika-Stieda lesion and indicative of remote trauma. 4. Moderate degenerative changes at the left knee, most pronounced at the lateral compartment. This may be due at least in part to prior trauma. 5. Incidental/nonacute findings are listed in the report. All radiology interpretation(s) finalized by discharge Discharge Plan Discharge Patient Disposition: Home Clinical Impression: Postoperative pain of left knee, Eczema of lower extremity Condition: Stable Prescriptions: New triamcinolone acetonide 0.5 % ointment 1 applic topical BID Qty: 15 0RF No Action (DME) pair of crutches See Rx Instructions .Route .MEDSUPPLY Qty: 1 0RF Rx Instructions: As directed Eliquis 5 mg tablet 5 mg PO BID Qty: 180 1RF levocetirizine [Xyzal] 5 mg tablet 5 mg PO DAILY 90 Days Qty: 90 1RF cyclobenzaprine 10 mg tablet See Rx Instructions .ROUTE .COMPLEX Qty: 30 0RF Dose Instruction: TAKE ONE TABLET BY MOUTH THREE TIMES DAILY NEEDED FOR MUSCLE SPASM. Rx Instructions: TAKE ONE TABLET BY MOUTH THREE TIMES DAILY NEEDED FOR MUSCLE SPASM. triamcinolone acetonide 0.1 % cream 1 applic topical BID 14 Days Qty: 80 0RF dicyclomine 10 mg capsule 10 mg PO TID PRN (Reason: abdominal pain) Qty: 30 2RF albuterol sulfate [Ventolin HFA] 90 mcg/actuation HFA aerosol inhaler See Rx Instructions .ROUTE .COMPLEX Qty: 18 2RF Dose Instruction: INHALE TWO PUFFS BY MOUTH FOUR TIMES DAILY NEEDED SHORTNESS OF BREATH Rx Instructions: INHALE TWO PUFFS BY MOUTH FOUR TIMES DAILY NEEDED SHORTNESS OF BREATH ketorolac 10 mg tablet 10 mg PO TID PRN (Reason: pain) Qty: 10 0RF ondansetron 4 mg tablet,disintegrating 4 mg PO QID PRN (Reason: nausea and vomiting) Qty: 20 0RF Philomena 60 mg Tablet 60 mg PO BID PRN (Reason: Allergy Symptoms) Nexium 20 mg Capsule,Delayed Release(Dr/Ec) 20 mg PO DAILY PRN (Reason: Acid Reflux) gabapentin 300 mg capsule 300 mg PO BID PRN (Reason: Pain) Discharge Orders: Discharge ED (Routine); Ordered 05/01/24 Ordered By: Duncan Mayberry Referrals: Kristyn Garza FNP [Primary Care Provider] - Activity Restrictions/Additional Instructions: Please closely follow-up with her orthopedic surgeon as well as your primary care provider. Apply topical steroid as discussed. Please return with any new or worsening symptoms. Coding Level of Care Code ED Lasting Room Supervisor for Hedy Mancuso
[2024-05-01] MEDS: HYDROcodone-acetaminophen 7.5-325 mg Tablet 1 TAB PO (21:24)
[2024-05-01 21:26] VITALS: BP 147/90; PULSE 99; O2SAT 98
[2024-05-01 23:29] VITALS: BP 140/86; PULSE 87; O2SAT 97
== END 2024-05-01 23:30 | disposition home or self-care (01) ==
PROVIDERS: Emergency Provider Physician Assistant; PCP Nurse Practitioner Family
DX: G89.18 Other acute postprocedural pain (principal); L30.9 Dermatitis, unspecified; Z79.01 Long term (current) use of anticoagulants
CPT/HCPCS: 73562; 99283

== ENCOUNTER 2024-09-19 18:29 | Emergency (ER) | payer MEDICAID, SELFPAY ==
[2024-09-19 18:30] VITALS: BP 142/72; PULSE 79; TEMP 36.4; O2SAT 96; BMI 31.5
--- NOTE | 2024-09-19 18:38 | XRR_ITS ---
PROCEDURE INFORMATION: Exam: XR Left Knee Exam date and time: 09/19/2024 6:46 PM Age: 34 years old Clinical indication: Pain; Knee; Left; Prior surgery; Surgery date: 6+ months; Surgery type: Screws and plates; Additional info: Knee pain TECHNIQUE: Imaging protocol: Radiologic exam of the left knee. Views: 3 views. COMPARISON: CR (LOW EXM, ) 05/01/2024 9:06 PM FINDINGS: Bones/joints: No acute fracture or dislocation. Redemonstrated ORIF of the proximal tibia with medial and lateral buttress plates and screws. Hardware appears intact without complication. Previously seen fracture line is less apparent with evidence of healing. Stable calcification along the medial collateral ligament, likely from remote trauma. Similar moderate tricompartmental degenerative changes of the knee with joint space narrowing and marginal osteophytes. A previously seen subtle area of subchondral lucency along the lateral femoral condyle is less conspicuous than prior. Soft tissues: Normal. XR/XR knee LT 3V* [id number] IMPRESSION: 1. No acute osseous findings. 2. Chronic findings as above are similar to prior. 3. No acute osseous findings.
--- NOTE | 2024-09-19 18:52 | XRR_ITS ---
PROCEDURE INFORMATION: Exam: XR Left Tibia and Fibula Exam date and time: 09/19/2024 6:51 PM Age: 34 years old Clinical indication: Pain; Left; Prior surgery; Surgery date: 6+ months; Surgery type: Knee surgery plates and screws; Additional info: Injury TECHNIQUE: Imaging protocol: Radiologic exam of the left tibia and fibula. Views: 2 views. COMPARISON: CR (LOW EXM, ) 09/19/2024 6:46 PM FINDINGS: Bones/joints: No acute fracture or dislocation. ORIF of a previous proximal tibia fracture. Hardware appears intact without complication. Moderate degenerative changes of the knee. The ankle joint is grossly intact. Soft tissues: Normal. XR/XR tibia fibula LT 2V [id number] IMPRESSION: No acute osseous findings.
--- NOTE | 2024-09-19 18:55 | W.ED.EXTPRO ---
HPI - Extremity Problem General: Chief complaint: Extremity Injury, Lower Stated complaint: L Leg painfull throbing Time Seen by Provider: 09/19/24 18:31 Source: patient Mode of arrival: ambulatory Limitations: no limitations History of Present Illness: 34-year-old male who had a tibial plateau fracture a year ago and had surgery states he has had pain in that left knee since then. States he is following up with a surgeon next month may take the hardware out. He denies any new injury states pain is worse with walking denies any fevers denies any increased swelling Associated symptoms: Deny chest pain, fever(s) or rash Related Data Home Medications ?Medication ?Instructions ?Recorded ?Confirmed esomeprazole magnesium 20 mg 20 mg PO DAILY PRN Acid Reflux 01/02/23 07/20/24 capsule,delayed release (Nexium) fexofenadine 60 mg tablet 60 mg PO BID PRN Allergy Symptoms 01/02/23 07/20/24 gabapentin 300 mg capsule 300 mg PO BID PRN Pain 01/02/23 07/20/24 doxycycline hyclate 100 mg tablet 100 mg PO BID 07/20/24 07/20/24 Previous Rx's ?Medication ?Instructions ?Recorded apixaban 5 mg tablet (Eliquis) 5 mg PO BID #180 tabs 12/19/23 Held on 07/20/24. Instructions: Patient No Longer Taking albuterol sulfate 90 mcg/actuation See Rx Instructions .Route 01/06/24 aerosol inhaler (Ventolin HFA) .COMPLEX #18 grams dicyclomine 10 mg capsule 10 mg PO TID PRN abdominal pain 01/06/24 #30 caps ketoconazole 2 % topical cream 1 applic topical BID 14 days #15 07/20/24 grams hydrocodone 5 mg-acetaminophen 325 1 tab PO Q6H PRN pain #14 tabs 09/19/24 mg tablet naproxen 500 mg tablet (Naprosyn) 500 mg PO BID PRN pain #20 tabs 09/19/24 Allergies Allergy/AdvReac Type Severity Reaction Status Date / Time No Known Allergies Allergy Verified 09/19/24 18:37 Review of Systems Const: Denies: fever(s), chills, body aches or change in appetite ENMT: Denies: throat pain or dental pain Card: Denies: chest pain Resp: Denies: dyspnea GI: Denies: abdominal pain, nausea, vomiting or diarrhea Musc: Reports: extremity pain; Denies: neck pain or back pain Skin/Breast: Denies: rash Neuro: Denies: headache(s) PFSH ED PFSH: Medical History Hx of staphylococcal infection Intellectual disability Eczema GERD (gastroesophageal reflux disease) Morbid obesity Reactive airway disease Pulmonary embolism post surgical after knee surgery 2023. He is not sure if he is still on a blood thinner. IBS (irritable bowel syndrome) Seasonal allergies Surgical History Tibial fracture surgery on left knee in [facility] in 2023. subsequent PE and surgical infection that resulted in IV abx. Ortho doc suspects his rash on the left leg may be an allergic reaction to hardware. He may have hardware revision in the future. History of colonoscopy History of cholecystectomy Hx of appendectomy (~1996) Hx of knee surgery Family History Father Diabetes Hyperlipidemia Hypertension Stroke Heart disease Social History Smoking and tobacco/nicotine status: never used tobacco/nicotine Second hand smoke exposure: No Alcohol intake: never Substance/Drug Use: never Lives independently: No Household members: family and other Details: lives with mother Housing: House Marital status: Single service: No Current occupational status: disabled and other Details: Ruth Ann Jeff manages his finances Current gender identity: Male Physical Exam Const: COMMON NORMALS: no acute distress, patient oriented x3 and healthy appearing HENMT: COMMON NORMALS: normocephalic and atraumatic HEAD & SCALP: normocephalic and atraumatic Neck/C-Spine: COMMON NORMALS: full ROM and supple Chest: COMMONS NORMALS: normal inspection of the chest Resp: COMMON NORMALS: normal respiratory effort, No retractions, No use of accessory muscles and clear to auscultation bilaterally AUSCULTATION: clear to auscultation bilaterally Cardio: COMMON NORMALS: regular rate RATE: regular rate Extremity: COMMON NORMALS: normal to inspection and full ROM NARRATIVE EXTREMITY EXAM: No swelling or warmth to touch to the left knee distal pulse sensation intact Neuro: COMMON NORMALS: patient oriented x3, moves all extremities and no focal motor deficits Psych: COMMON NORMALS: mental status grossly normal, Normal thought process present and cooperative THOUGHT PROCESS: Normal thought process present Skin: COMMON NORMALS: no rashes or lesions noted and no wounds GENERAL SKIN EXAM: no rashes or lesions noted Course Vital Signs: Vital signs: Vital Signs Temperature 97.5 F L 09/19/24 18:30 Pulse Rate 79 09/19/24 18:30 Blood Pressure 142/72 09/19/24 18:30 Pulse Oximetry 96 09/19/24 18:30 Oxygen Delivery Me thod Room Air 09/19/24 18:30 MDM - Extremity (Nontraumatic) Medical Decision Making Patient presents for knee pain is chronic in nature imaging shows no acute abnormalities he has no signs of septic joint he has follow-up with his orthopedist this month his follow-up as scheduled return if worsening. XR interpretation done by ED provider, pending radiology final review ED provider radiology interpretation(s): xr L knee& tib fib: no acute fx Discharge Plan Discharge Patient Disposition: Home Clinical Impression: Knee pain, left Qualifiers: Chronicity: chronic Qualified Code(s): M25.562 - Pain in left knee Condition: Stable Prescriptions: New hydrocodone-acetaminophen 5-325 mg tablet 1 tab PO Q6H PRN (Reason: pain) Qty: 14 0RF naproxen [Naprosyn] 500 mg tablet 500 mg PO BID PRN (Reason: pain) Qty: 20 0RF No Action Eliquis 5 mg tablet 5 mg PO BID Qty: 180 1RF doxycycline hyclate 100 mg tablet 100 mg PO BID ketoconazole 2 % cream 1 applic topical BID 14 Days Qty: 15 0RF dicyclomine 10 mg capsule 10 mg PO TID PRN (Reason: abdominal pain) Qty: 30 2RF albuterol sulfate [Ventolin HFA] 90 mcg/actuation HFA aerosol inhaler See Rx Instructions .ROUTE .COMPLEX Qty: 18 2RF Dose Instruction: INHALE TWO PUFFS BY MOUTH FOUR TIMES DAILY NEEDED SHORTNESS OF BREATH Rx Instructions: INHALE TWO PUFFS BY MOUTH FOUR TIMES DAILY NEEDED SHORTNESS OF BREATH Philomena 60 mg Tablet 60 mg PO BID PRN (Reason: Allergy Symptoms) Nexium 20 mg Capsule,Delayed Release(Dr/Ec) 20 mg PO DAILY PRN (Reason: Acid Reflux) gabapentin 300 mg capsule 300 mg PO BID PRN (Reason: Pain) Discharge Orders: Discharge ED (Routine); Ordered 09/19/24 Ordered By: Ap Campoverde Referrals: Nikhil King HOSTESS [Primary Care Provider, Family Practice] Discharge Diet: Advance as tolerated Discharge Activity: Resume usual activity Patient Instructions: Knee Pain (ED), Opioid Safety Print Language: Moldovan Coding Level of Care Code ED Power Reactor Operator for Hedy Mancuso
[2024-09-19] MEDS: HYDROcodone-acetaminophen 5-325 mg Tablet 1 TAB PO (19:09)
[2024-09-19 19:22] VITALS: BP 137/64; PULSE 67; O2SAT 95
== END 2024-09-19 19:26 | disposition home or self-care (01) ==
PROVIDERS: Emergency Provider Emergency Medicine; PCP Clinical Nurse Specialist Adult Health
DX: M25.562 Pain in left knee (principal); Z79.01 Long term (current) use of anticoagulants
CPT/HCPCS: 73562; 73590; 99283; J9999

== ENCOUNTER 2024-10-17 23:37 | Emergency (ER) | payer MEDICAID, SELFPAY ==
[2024-10-17 23:44] VITALS: BP 136/75; PULSE 67; RESP 17; TEMP 36.6; O2SAT 96; BMI 32.3
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
[2024-10-18 03:32] VITALS: BP 138/70; PULSE 62; O2SAT 97
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
[2024-10-18 04:37] VITALS: BP 123/82; PULSE 95; O2SAT 100
== END 2024-10-18 04:20 | disposition home or self-care (01) ==
PROVIDERS: Emergency Provider Emergency Medicine; PCP Clinical Nurse Specialist Adult Health
DX: S89.92XA Unspecified injury of left lower leg, initial encounter (principal); Z79.01 Long term (current) use of anticoagulants; X58.XXXA Exposure to other specified factors, initial encounter; Z87.81 Personal history of (healed) traumatic fracture
CPT/HCPCS: 73562; 99283

== ENCOUNTER → 2025-02-13 15:43 | Outpatient (BNVA) | payer MEDICAID, SELFPAY | PROVIDERS: PCP Clinical Nurse Specialist Adult Health; Visit Provider Clinical Nurse Specialist Adult Health | DX: I10 Essential (primary) hypertension (principal); E66.01 Morbid (severe) obesity due to excess calories | CPT/HCPCS: 83036 ==

== ENCOUNTER → 2025-02-14 07:54 | Outpatient (BNVA) | payer MEDICAID, SELFPAY | PROVIDERS: PCP Clinical Nurse Specialist Adult Health; Visit Provider Clinical Nurse Specialist Adult Health | DX: I10 Essential (primary) hypertension (principal); K21.9 Gastro-esophageal reflux disease without esophagitis; E66.01 Morbid (severe) obesity due to excess calories; K58.9 Irritable bowel syndrome, unspecified | CPT/HCPCS: 80053; 80061; 81000; 82306; 82607; 84443; 85025 ==

== ENCOUNTER 2025-04-13 15:23 | Emergency (ER) | payer MEDICAID, SELFPAY ==
[2025-04-13] VITALS (8 sets, daily range): BP systolic 139–150; BP diastolic 71–84; PULSE 65–93; RESP 18; TEMP 36.4–36.6; O2SAT 96–99; BMI 33.4
--- OUTSIDE RECORDS SUMMARY | 2025-04-13 15:28 | XMS_ITS | Patient Health Record ---
Author Organization [facility] Address [address] [place] [address] Care Team Providers Care Sales Analyst Name Role Phone Britton Johnson Primary Care Provider Unavailishan e David Ji Unavailable [phone] Reason For Referral No Information Medications Medication SIG (Take, Route, Frequency, Duration) Notes Start Date End Date Status Senna-Docusate Sodium 8.6-50 MG Tablet 1 tablet as needed Orally Twice a day Active Warfarin Sodium 5 MG Tablet 1 tablet Ora lly Once a day Active Saccharomyces boulardii 250 MG Capsule as directed Orally Active Esomeprazole Magnesium 20 MG Capsule Delayed Release 1 capsule 1/2 to 1 hour before morning meal Orally Once a day Active Ondansetron HCl 4 MG Tablet 1 tablet Ora lly Once a day Active rifAMPin 300 MG Capsule as directed Orally Active Albuterol Sulfate HFA 108 (90 Base) MCG/ACT Aerosol Solution 1 puff as needed Inhalation every 4 hrs Active Acetaminophen 500 MG Capsule 1 capsule as needed Orally every 6 hrs Active Enoxaparin Sodium 100 MG/ML Solution Prefilled Syringe as directed Injection Active Xyzal Allergy 24HR 5 MG Tablet 1 tablet in the evening Orally Once a day Active DAPTOmycin-Sodium Chloride 500-0.9 MG/50ML Solution as directed Intravenous Active Problems Problem Type SNOMED Code ICD Code Onset Dates Problem Status W/U Status Risk Notes Problem Essential hypertension (22349877) Essential (primary) hypertension (I10) Active confirmed Problem Intellectual disability (357310860) Intellectual disability (F79) Active confirmed Encounters Encounter Location Date Provider Diagnosis [facility] [address] [place] [address] 05/31/2024 David Ji Infection and inflammatory reaction due to other internal orthopedic prosthetic devices, implants and grafts, subsequent encounter T84.7XXD ; Displaced bicondylar fracture of left tibia, subsequent encounter for closed fracture with routine healing S82.142D ; Rash and other nonspecific skin eruption R21 ; Bilateral pulmonary embolism I26.99 ; Intellectual disability F79 and Essential (primary) hypertension I10 [facility] [address] [place] [address] 07/02/2024 David Ji Displaced bicondylar fracture of left tibia, subsequent encounter for closed fracture with routine healing S82.142D ; Infection and inflammatory reaction due to other internal orthopedic prosthetic devices, implants and grafts, subsequent encounter T84.7XXD ; Rash and other nonspecific skin eruption R21 ; Bilateral pulmonary embolism I26.99 ; Intellectual disability F79 and Essential (primary) hypertension I10 [facility] [address] [place] [address] 06/15/2024 David Ji Intellectual disability F79 and Essential (primary) hypertension I10 Assessments Encounter Date Diagnosis (ICD Code) Assessment Notes Treatment Notes Treatment Clinical Notes Section Notes 07/02/2024 Displaced bicondylar fracture of left tibia, subsequent encounter for closed fracture with routine healing (ICD-10 - S82.142D) 06/15/2024 Intellectual disability (ICD-10 - F79) 05/31/2024 Displaced bicondylar fracture of left tibia, subsequent encounter for closed fracture with routine healing (ICD-10 - S82.142D) 05/31/2024 Infection and inflammatory reaction due to other internal orthopedic prosthetic devices, implants and grafts, subsequent encounter (ICD-10 - T84.7XXD) 06/15/2024 Essential (primary) hypertension (ICD-10 - I10) 05/31/2024 Rash and other nonspecific skin eruption (ICD-10 - R21) 07/02/2024 Infection and inflammatory reaction due to other internal orthopedic prosthetic devices, implants and grafts, subsequent encounter (ICD-10 - T84.7XXD) 07/02/2024 Rash and other nonspecific skin eruption (ICD-10 - R21) 05/31/2024 Bilateral pulmonary embolism (ICD-10 - I26.99) 05/31/2024 Intellectual disability (ICD-10 - F79) 07/02/2024 Bilateral pulmonary embolism (ICD-10 - I26.99) 07/02/2024 Intellectual disability (ICD-10 - F79) 05/31/2024 Essential (primary) hypertension (ICD-10 - I10) 07/02/2024 Essential (primary) hypertension (ICD-10 - I10) 05/31/2024 Other Medications reviewed, orders signed and documented with nursing staff. Vitals taken and recorded at [facility]. 06/15/2024 Other Medications reviewed, orders signed and documented with nursing staff. Vitals taken and recorded at [facility]. 07/02/2024 Other Medications reviewed, orders signed and documented with nursing staff. Vitals taken and recorded at [facility]. Pt approved for discharge. Plan Of Treatment No Information Insurance Providers Payer Name Payer Address Payer Phone Subscriber Number Group Number Insured Name Patient Relationship to Insured Coverage Start Date Coverage End Date [place] Medicaid [address] [place] [address] [id number] Rio Ji Self - patient is the insured
--- OUTSIDE RECORDS SUMMARY | 2025-04-13 15:29 | XMS_ITS | Encounter Summary ---
Author Organization [facility] Address [address] [place] [address] Care Team Providers Care Head Kiln Operator Name Role Phone Unavailable Primary Care Provider Unavailabl e Reason for Visit * Reason Comments Med Refill Encounter Details Date Type Department Care Team (Late Contact Info) Description 03/30/2025 Refill [facility] [place] [address] [place] [address] Víctor Tran MD [address] [place] [address] Social History Tobacco Use Types Packs/Day Years Used Date Smoking Tobacco: Never Smokeless Tobacco: Never Alcohol Use Standard Drinks/Week Comments Never 0 (1 standard drink = 0.6 oz pur e alcohol) Feeling Safe Answer Date Recorded Are you in a relationship wi th someone who hurts you emotionally and/or physically? No 02/25/2025 Food Insecurity Answer Date Recorded Patient needs follow up regardin 09/15/2024 Transportation Needs Answer Date Record ed Patient needs follow up regardin 09/15/2024 Housing Stability Answer Date Recorded Social/Environmental Concerns No concerns Utility Needs Answer Date Recorded Patient needs follow up regardin 09/15/2024 Sex and Gender Information Value Date Recorded Sex Assigned at Not on file Legal Sex Male 1:29 PM CDT Gender Identity Not on file Sexual Orientation Not on file documented as of this encounter Plan of Treatment Upcoming Encounters Date Type Department Care Team (Late Contact Info) Description 04/22/2025 8:00 AM TEST AND RESEARCH REACTOR OPERATOR Office Visit [facility] [place] [address] [place] [address] Víctor Tran MD [address] [place] [address] documented as of this encounter Visit Diagnoses Not on filedocumented in this encounter
--- OUTSIDE RECORDS SUMMARY | 2025-04-13 15:29 | XMS_ITS | Encounter Summary ---
Author Organization [facility] Address [address] [place] [address] Care Team Providers Care Dental Claims Processor Name Role Phone Unavailable Primary Care Provider Unavailabl e Encounter Details Date Type Department Care Team (Latest Contact Info) Description 03/01/2025 Results Follow-Up [facility] [place] [address] [facility] [address] [place] [address] Víctor Tran MD [address] [place] [address] ANAEROBIC/AEROBIC CULTURE W GRAM STAIN, ANAEROBIC/AEROBIC CULTURE W GRAM STAIN Social History Tobacco Use Types Packs/Day Years [...] Upcoming Encounters Date Type Department Care Team ( Contact Info) Description 04/22/2025 8:[address] FREIGHT CONDUCTOR Office Visit [facility] [place] [address] [place] [address] Víctor Tran MD [address] [place] [address] documented as of this encounter Visit Diagnoses Not on filedocumented in this encounter
--- OUTSIDE RECORDS SUMMARY | 2025-04-13 15:29 | XMS_ITS | Encounter Summary ---
Author Organization [facility] Address [address] [place] [address] Care Team Providers Care Director [facility] Name Role Phone Unavailable Primary Care Provider Unavailabl e Reason for Visit * Reason Onset Date Comments General 04/12/2025 Encounter Details Date Type Department Care Team (Late st Contact Info) Description 04/12/2025 Telephone [facility] [place] [address] [place] [address] Víctor Tran MD [address] [place] [address] General Social History Tobacco Use Types Packs/Day Years [...] on file documented as of this encounter Miscellaneous Notes * Telephone Encounter - Karla West - 04/12/2025 10:27 AM CST I called and spoke with Rosibel and let her know I talked to the provider in clinic and he stated that the incision looks okay. Told her they just need to watch it for now. Told if it starts draining, starts becoming more red, he starts running a fever or it becomes warm to touch, etc, then she needs to let our office know. Told her if its over the weekend, then he will have to go to urgent care/ED. She states the patient has an appointment at the beginning of April. Told her that if it gets worse before then, she needs to let us know. She verbalized understanding. EQUIPMENT OPERATOR * Telephone Encounter - Karla West - 04/12/2025 10:15 AM CST Images from the original note were not included. EQUIPMENT OPERATOR * Telephone Encounter - Karla West - 04/12/2025 9:58 AM CST I've tried calling Rosibel a couple of times this morning but no answer. L/M for her to return call. I also called patients guardian and she is going to have Rosibel call our office. EQUIPMENT OPERATOR * Telephone Encounter - Karla West - 04/12/2025 9:56 AM CST DATE: 04.12.25 Time: 8:20 am Who is the doctor/PA: Marc Phone #: [phone] Person calling: Rosibel Reason for the call: Rosibel is calling stating the patients incision is red and it looks like there is puss under neath the incision. DOI or SX DATE: 02.28.25 Tibia hardware removal LV: 03.28.25 EQUIPMENT OPERATOR documented in this encounter Plan of Treatment Upcoming Encounters Date Type Department Care Team (Late st Contact Info) Description 04/22/2025 8:[address] EQUIPMENT OPERATOR Office Visit [facility] [place] [address] [facility] [address] [place] [address] Víctor Tran MD [address] [facility] [address] [place] [address] documented as of this encounter Visit Diagnoses Not on filedocumented in this encounter
--- OUTSIDE RECORDS SUMMARY | 2025-04-13 15:29 | XMS_ITS | Clinical Summary ---
Author Organization [facility] Address [address] [place] [address] Phone Care Team Providers Care Clay Maker Name Role Phone Unavailable Primary Care Provider Unavailabl e Allergies No known active allergies Medications dicyclomine (BENTYL) 10 mg capsule Take 10 mg by mouth 3 times daily as needed for Pain. Active ondansetron (ZOFRAN ODT) 4 mg Tablet, Rapid Dissolve Take 4 mg by mouth every 6 hours as needed for Nausea/Emesis. Dissolve tablet on top of tongue, then swallow with saliva. Active albuterol sulfate HFA 90 mcg/actuation aerosol inhaler Take 2 Puffs by inhalation every 6 hours as needed for Shortness of Breath or Wheezing. Active levocetirizine (Xyzal) 5 mg tablet Take 5 mg by mouth late in the day. Active esomeprazole (NexIUM) 20 mg Capsule, Delayed Release(E.C.) Take 20 mg by mouth daily before breakfast. Active gabapentin (NEURONTIN) 300 mg capsule Take 300 mg by mouth. Active acetaminophen (TYLENOL) 500 mg tablet Take 2 Tablets (1,000 mg) by mouth every 6 hours as needed for Pain. 90 Tablet 05/31/19 25 Active Saccharomyces boulardii (FLORASTOR) 250 mg Capsule Take 1 Capsule (250 mg) by mouth 2 times daily. 60 Capsule 05/31/19 25 Active Normal Saline Flush Syringe 05/31/19 25 Active 0.9 % sodium chloride (sodium chloride 0.9%) Piggyback 06/04/19 25 Active DAPTOmycin (CUBICIN) 500 mg Recon Soln vial 06/25/19 25 Active ketoconazole (NIZORAL) 2 % Cream APPLY TOPICALLY TO THE AFFECTED AREA TWICE DAILY FOR 14 DAYS 07/20/19 25 Active naproxen (NAPROSYN) 500 mg tablet Take 500 mg by mouth 2 times daily with meals. 09/21/19 25 Active doxycycline hyclate (VIBRAMYCIN) 100 mg tabletIndications: At risk for Clostridioides difficile infection,Infected hardware in left lower extremity, subsequent encounter,High risk medication use,Therapeutic drug monitoring TAKE ONE TABLET BY MOUTH TWICE DAILY 180 Tablet 02/07/20 25 Active losartan (COZAAR) 50 mg tablet Take 1 Tablet by mouth daily. 01/25/20 25 Active HYDROcodone-acetam inophen (NORCO) 5-325 mg tabletIndications: Infected hardware in left lower extremity, subsequent encounter Take 1 Tablet by mouth every 6 hours as needed for Pain, Moderate. Max Daily Amount: 4 Tablets 15 Tablet 02/29/20 25 Active linezolid (ZYVOX) 600 mg tabletIndications: Infected hardware in left lower extremity, subsequent encounter,High risk medication use,Chronic antibiotic suppression Take 1 Tablet (600 mg) by mouth 2 times daily. 60 Tablet 03/01/20 25 Active doxycycline hyclate (VIBRAMYCIN) 100 mg capsule Take 1 Capsule (100 mg) by mouth 2 times daily for 15 days. 30 Capsule 02/28/20 25 025 aspirin (ECOTRIN EC) 81 mg Tablet, Delayed Release (E.C.) Take 1 Tablet (81 mg) by mouth 2 times daily. 60 Tablet 02/29/20 25 025 Active Problems Problem Noted Date Diagnosed Date History of pulmonary embolism 05/19/2024 Infected hardware, Lt proximal tibia 05/17/2024 Chronic anticoagulation 05/17/2024 Rash, Lt leg 05/17/2024 Rupture of operation wound 05/17/2024 Fever of unknown origin (FUO) 12/02/2023 S/P ORIF (12/01/23), Closed d isplaced bicondylar fracture of left tibia 11/27/2023 Resolved Problems Problem Noted Date Diagnosed Date Resolved Date Acute pulmonary embolism wit hout acute cor pulmonale 12/03/2023 05/19/2024 Closed fracture of left tibial plateau 11/28/2023 05/02/2024 Encounters Date Type Department Care Team Description 04/12/2025 Telephone [place] [address] [place] [phone] Víctor Tran MD General 04/02/2025 External Device Data STL ABSTRACTION Provider, Abstract 03/30/2025 Refill [place] [address] [place] [phone] Víctor Tran MD 03/28/2025 3:20 PM CIGAR BANDER HAND Office Visit [facility] Infectious Disease[address] [place] [phone] Tatiana Ball DNP Infected hardware in left lower extremity, subsequent encounter (Primary Dx); At risk for Clostridioides difficile infection 03/28/2025 2:20 PM CIGAR BANDER HAND Office Visit [place] [address] [place] [address] Víctor Tran MD Closed bicondylar fracture of left tibial plateau (Primary Dx) 03/26/2025 External Device Data STL ABSTRACTION Provider, Abstract 03/20/2025 External Device Data STL ABSTRACTION Provider, Abstract 03/20/2025 External Device Data STL ABSTRACTION Provider, Abstract 03/18/2025 11:20 AM CDT Office Visit [facility] Disease[address] [phone] Tatiana Ball DNP Infected hardware in left lower extremity, subsequent encounter (Primary Dx); At risk for Clostridioides difficile infection 03/18/2025 10:00 AM CDT Office Visit [place] [address] [place] [address] Víctor Tran MD Closed bicondylar fracture of left tibial plateau (Primary Dx) 03/18/2025 9:15 AM CDT Ancillary Procedure [place] [address] [place] [phone] Víctor Tran MD Closed bicondylar fracture of left tibial plateau 03/13/2025 External Device Data STL ABSTRACTION Provider, Abstract 03/01/[address] [facility] Infectious Disease[address] [phone] Donavon Taylor MD Follow Up 03/01/2025 Results Follow-Up [facility] Orthopedics [address] [facility] [address] [place] [phone] Víctor Tran MD ANAEROBIC/AEROBIC CULTURE W GRAM STAIN, ANAEROBIC/AEROBIC CULTURE W GRAM STAIN 02/28/2025 7:45 AM CDT Anesthesia Event [facility] Operating Room [address] [place] [address] Sonali Teran MD Adam-Hager, [place], [facility] 02/28/2025 7:45 AM CDT - 02/28/2025 9:34 AM CDT Surgery [facility] Operating Room [address] [place] [address] Víctor Tran MD TIBIA HARDWARE REMOVAL 02/28/2025 5:51 AM CDT - 02/28/2025 12:00 PM CDT Hospital Encounter [facility] 3J Pre-Op [address] [place] [address] Víctor Tran MD Painful orthopaedic hardware Discharge Disposition: Home or Self Care 02/27/2025 1:20 PM CDT Office Visit [facility] Infectious Disease-[address] [phone] Donavon Taylor MD Infected hardware in left lower extremity, subsequent encounter (Primary Dx); High risk medication use; Chronic antibiotic suppression; At risk for Clostridioides difficile infection 02/06/2025 10:40 AM CDT Office Visit [facility] Orthopedics [address] [place] [phone] Víctor Tran MD Closed bicondylar fracture of left tibial plateau (Primary Dx); Painful orthopaedic hardware 02/06/2025 10:25 AM CDT Ancillary Procedure [address] [place] [phone] Víctor Tran MD Closed bicondylar fracture of left tibial plateau 02/06/[address] [facility] Orthopedics - Orthopedic [place] [address] [place] [phone] Víctor Tran MD 02/05/[address] [facility] Infectious Disease-[address] [place] [phone] Tatiana Ball, KATIE At risk for Clostridioides difficile infection; Infected hardware in left lower extremity, subsequent encounter; High risk medication use; Therapeutic drug monitoring 01/22/2025 External Device Data STL ABSTRACTION Provider, Abstract 01/22/2025 External Device Data STL ABSTRACTION Provider, Abstract from Last 3 Months Social History Tobacco Use Types Packs/Day Years Used Date Smoking Tobacco: Never Smokeless Tobacco: Never Tobacco Cessation:Counseling Given: Not Answered Alcohol Use Standard Drinks/Week Comments Never 0 [...] on file Sexual Orientation Not on file Last Filed Vital Signs Vital Sign Reading Time Taken Comments Blood Pressure 152/80 03/28/2025 2:01 PM CIGAR BANDER HAND Pulse 87 03/28/2025 2:01 PM CIGAR BANDER HAND Temperature 36.4 C (97.6 F) 03/28/2025 2:01 PM CIGAR BANDER HAND Respiratory Rate 18 02/28/2025 11:15 AM CDT Oxygen Saturation 95% 03/28/2025 2:01 PM CIGAR BANDER HAND Inhaled Oxygen Concentration - - Weight 105.7 kg (233 lb) 03/28/2025 2:01 PM CIGAR BANDER HAND Height 172.7 cm (5' 8 ) 03/28/2025 2:01 PM CIGAR BANDER HAND Body Mass Index 35.43 03/28/2025 2:01 PM CIGAR BANDER HAND Plan of Treatment Upcoming Encounters Date Type Department Care Team (Late st Contact Info) Description 04/22/2025 8:00 AM CIGAR BANDER HAND Office Visit [facility] Orthopedics [place] [address] [facility] [address] [place] [address] Víctor Tran MD [address] [place] [facility] [address] [place] [address] Health Maintenance Due Date Last Done Comments Pre-Diabetes and Diabetes Screening 1988 DTAP/TDAP/TD VACCINES (1 - Tdap) 02/17/2007 HPV VACCINES (1 - 3-dose SCD M series) 02/17/2015 INFLUENZA VACCINE (#1) 2024 HEPATITIS B VACCINES Completed 01/15/2000, 08/20/1993, 02/11/1992 Medical Devices Implanted Type Area Immigration Associate Device Identifier Shelf Expiration Date Model / Serial / Lot [place] Suture 5.5x14.7mm Bio Corkscrew [id number] - [id number] Implanted:Qty: 1 on 02/28/2025 by Víctor Tran MD at [facility] [place] Left: Tibia [employer] [id number] 09/19/2028 [id number] / / [id number] Explanted Type Area Immigration Associate Device Identifier Shelf Expiration Date Model / Serial / Lot Clamp Combination Lg 390.005 - [id number] Implanted:Qty: 1 on 11/28/2023 by David Mckeon DO at [facility] Explanted:Qty: 1 on 02/28/2025 at [facility] Left: Leg J&J- DEPUY SYNTHES 05/23/2029 390.005 / / [id number] MAIN-03 Description:Not in place upo n arrival Vic Carbon Fiber [id number] 394.87 - [id number] Implanted:Qty: 1 on 11/28/2023 by David Mckeon, DO at [facility] Explanted:Qty: 1 on 02/28/2025 at [facility] Left: Leg J&J- DEPUY SYNTHES 05/23/2029 394.87 / / [id number] MAIN-03 Description:Not in place upo n arrival Clamp Open Adjust Lg 390.008 - [id number] Implanted:Qty: 1 on 11/28/2023 by David Mckeon, at [facility] Explanted:Qty: 1 on 02/28/2025 at [facility] Left: Leg J&J- DEPUY SYNTHES 05/23/2029 390.008 / / [id number] MAIN-03 Description:Not in place upo n arrival Clamp Open Adjust Lg 390.008 - [id number] Implanted:Qty: 1 on 11/28/2023 by David Mckeon, at [facility] Explanted:Qty: 1 on 02/28/2025 at [facility] Left: Leg J&J- DEPUY SYNTHES 05/23/2029 390.008 / / [id number] MAIN-03 Description:Not in place upo n arrival Clamp Open Adjust Lg 390.008 - [id number] Implanted:Qty: 1 on 11/28/2023 by David Mckeon, DO at [facility] Explanted:Qty: 1 on 02/28/2025 at [facility] Left: Leg J&J- DEPUY SYNTHES 05/23/2029 390.008 / / [id number] MAIN-03 Description:Not in place upo n arrival Clamp Open Adjust Lg 390.008 - [id number] Implanted:Qty: 1 on 11/28/2023 by David Mckeon, at [facility] Explanted:Qty: 1 on 02/28/2025 at [facility] Integral Left: Leg J&J- DEPUY SYNTHES 05/23/2029 390.008 / / [id number] MAIN-03 Description:Not in place upo n arrival Clamp Open Adjust Lg 390.008 - [id number] Implanted:Qty: 1 on 11/28/2023 by David Mckeon, at [facility] Explanted:Qty: 1 on 02/28/2025 at [facility] Left: Leg J&J- DEPUY SYNTHES 05/23/2029 390.008 / / [id number] MAIN-03 Description:Not in place upo n arrival Clamp Open Adjust Lg 390.008 - [id number] Implanted:Qty: 1 on 11/28/2023 by David Mckeon DO at [facility] Explanted:Qty: 1 on 02/28/2025 at [facility] Left: Leg J&J- DEPUY SYNTHES 05/23/2029 390.008 / / [id number] MAIN-03 Description:Not in place upo n arrival Vic Carbon Fiber 51b020pg 394.85 - [id number] Implanted:Qty: 1 on 11/28/2023 by David Mckeon DO at [facility] Explanted:Qty: 1 on 02/28/2025 at [facility] Left: Leg J&J- DEPUY SYNTHES 05/23/2029 394.85 / / [id number] MAIN-03 Description:Not in place upo n arrival Vic Carbon Fiber [id number] 394.85 - [id number] Implanted:Qty: 1 on 11/28/2023 by David Mckeon DO at [facility] Explanted:Qty: 1 on 02/28/2025 at [facility] Left: Leg J&J- DEPUY SYNTHES 05/23/2029 394.85 / / [id number] MAIN-03 Description:[address] in place upo n arrival Screw Evos Crtx Stp 3.5x30mm 9304-7821 - [id number] Explanted:Qty: 1 on 12/01/2023 by Víctor Tran MD at [facility] Screw Left: Tibia EAGLE [employer]PHEW ORTHO [id number] / / Screw Evos Crtx Stp 3.5x80mm 1756-5918 - [id number] Explanted:Qty: 1 on 12/01/2023 by Víctor Tran MD at [facility] Screw Left: Tibia EAGLE NEPHEW ORTHO [id number] / / Screw Evos Crtx Stp 3.5x75mm 9431-0579 - [id number] Explanted:Qty: 1 on 12/01/2023 by Víctor Tran MD at [facility] Screw Left: Tibia EAGLE NEPHEW ORTHO [id number] / / Screw Schanz 5.4t950gx 294.56 - [id number] Implanted:Qty: 1 on 11/28/2023 by David Mckeon DO at [facility] Explanted:Qty: 1 on 02/28/2025 at [facility] Screw Left: Leg J&J- DEPUY SYNTHES 05/23/2029 294.56 / / [id number] MAIN-[address] upo n arrival Screw Schanz 5.9o455id 294.56 - [id number] Implanted:Qty: 1 on 11/28/2023 by David Mckeon DO at [facility] Explanted:Qty: 1 on 02/28/2025 at [facility] Screw Left: Leg J&J- DEPUY SYNTHES 05/23/2029 294.56 / / [id number] MAIN-[address] upo n arrival Screw Schanz 5.8f482bn 294.55 - [id number] Implanted:Qty: 1 on 11/28/2023 by David Mckeon DO at [facility] Explanted:Qty: 1 on 02/28/2025 at [facility] Screw Left: Leg J&J- DEPUY SYNTHES 05/23/2029 294.55 / / [id number] MAIN-[address] upo n arrival Screw Schanz 5.8t111tm 294.55 - [id number] Implanted:Qty: 1 on 11/28/2023 by David Mckeon DO at [facility] Explanted:Qty: 1 on 02/28/2025 at [facility] Screw Left: Leg J&J- DEPUY SYNTHES 05/23/2029 294.55 / / [id number] MAIN-[address] upo n arrival Screw Evos Crtx Stp 3.5x30mm 2971-6380 - [id number] Implanted:Qty: 1 on 12/01/2023 by Víctor Tran MD at [facility] Explanted:Qty: 1 on 02/28/2025 by Víctor Tran MD at [facility] Screw Left: Tibia EAGLE [employer]PHEW ORTHO [id number] / / Screw Evos Crtx Stp 3.5x30mm 6219-3217 - [id number] Implanted:Qty: 1 on 12/01/2023 by Víctor Tran MD at [facility] Explanted:Qty: 1 on 02/28/2025 by Víctor Tran MD at [facility] Screw Left: Tibia EAGLE [employer]PHE[employer] ORTHO [id number] / / Screw Evos Stp Loc 3.5x30mm 9456-2241 - [id number] Implanted:Qty: 1 on 12/01/2023 by Víctor Tran MD at [facility] Explanted:Qty: 1 on 02/28/2025 by Víctor Tran MD at [facility] Screw Left: Tibia [employer]PHE[employer] ORTHO [id number] / / Screw Evos Stp Loc 3.5x30mm 7809-1597 - [id number] Implanted:Qty: 1 on 12/01/2023 by Víctor Tran MD at [facility] Explanted:Qty: 1 on 02/28/2025 by Víctor Tran MD at [facility] Screw Left: Tibia [employer] ORTHO [id number] / / Screw Evos Stp Loc 3.5x30mm 9664-6717 - [id number] Implanted:Qty: 1 on 12/01/2023 by Víctor Tran MD at [facility] Explanted:Qty: 1 on 02/28/2025 by Víctor Tran MD at [facility] Screw Left: Tibia [employer]AG[employer]PHEW ORTHO [id number] / / Screw Evos Crtx Stp 3.5x40mm 9197-1125 - [id number] Implanted:Qty: 1 on 12/01/2023 by Víctor Tran MD at [facility] Explanted:Qty: 1 on 02/28/2025 by Víctor Tran MD at [facility] Screw Left: Tibia [employer]HE[employer] ORTHO [id number] / / Screw Evos Crtx Stp 3.5x36mm 5695-6990 - [id number] Implanted:Qty: 1 on 12/01/2023 by Víctor Tran MD at [facility] Explanted:Qty: 1 on 02/28/2025 by Víctor Tran MD at [facility] Screw Left: Tibia [employer]PHE[employer] ORTHO [id number] / / Screw Evos Stp Loc 3.5x65mm 2216-9502 - [id number] Implanted:Qty: 1 on 12/01/2023 by Víctor Tran MD at [facility] Explanted:Qty: 1 on 02/28/2025 by Víctor Tran MD at [facility] Screw Left: Tibia EAGLE [employer]PHEW ORTHO [id number] / / Screw Evos Stp Loc 3.5x75mm 3183-6414 - [id number] Implanted:Qty: 1 on 12/01/2023 by Víctor Tran MD at [facility] Explanted:Qty: 1 on 02/28/2025 by Víctor Tran MD at [facility] Screw Left: Tibia EAGLE [employer]PHEW ORTHO [id number] / / Screw Evos Stp Loc 3.5x75mm 7579-6392 - [id number] Implanted:Qty: 1 on 12/01/2023 by Víctor Tran MD at [facility] Explanted:Qty: 1 on 02/28/2025 by Víctor Tran MD at [facility] Screw Left: Tibia EAGLE [employer]PHEW ORTHO [id number] / / Screw Evos Stp Loc 3.5x60mm 7707-2643 - [id number] Implanted:Qty: 1 on 12/01/2023 by Víctor Tran MD at [facility] Explanted:Qty: 1 on 02/28/2025 by Víctor Tran MD at [facility] Screw Left: Tibia [employer]HE[employer] ORTHO [id number] / / Screw Evos Stp Loc 3.5x70mm 6997-0960 - [id number] Implanted:Qty: 1 on 12/01/2023 by Víctor Tran MD at [facility] Explanted:Qty: 1 on 02/28/2025 by Víctor Tran MD at [facility] Screw Left: Tibia EAGLE [employer] ORTHO [id number] / / Screw Evos Crtx Stp 3.5x28mm 2279-1269 - [id number] Implanted:Qty: 1 on 12/01/2023 by Víctor Tran MD at [facility] Explanted:Qty: 1 on 02/28/2025 by Víctor Tran MD at [facility] Screw Left: Tibia [employer] ORTHO [id number] / / Wire K Nasrin-Loc 1.64a664re 2956-1734 - [id number] Implanted:Qty: 1 on 12/01/2023 by Víctor Tran MD at [facility] Explanted:Qty: 1 on 02/28/2025 by Víctor Tran MD at [facility] Wire Left: Tibia [employer]HEW ORTHO 05/23/2029 [id number] / / [id number] MAIN-06 Wire K Nasrin-Loc 1.8i650wb 6524-9077 - [id number] Implanted:Qty: 1 on 12/01/2023 by Víctor Tran MD at [facility] Explanted:Qty: 1 on 02/28/2025 by Víctor Tran MD at [facility] Wire Left: Tibia [employer] ORTHO 05/23/2029 [id number] / / [id number] MAIN-06 Wire K Nasrin-Loc 1.7j587fz 2254-3072 - [id number] Implanted:Qty: 1 on 12/01/2023 by Víctor Tran MD at [facility] Explanted:Qty: 1 on 02/28/2025 by Víctor Tran MD at [facility] Wire Left: Tibia [employer]PHEW ORTHO 05/23/2029 [id number] / / [id number] MAIN-06 Wire K Nasrin-Loc 2.1x573vm 5641-1313 - [id number] Implanted:Qty: 1 on 12/01/2023 by Víctor Tran MD at [facility] Explanted:Qty: 1 on 02/28/2025 by Víctor Tran MD at [facility] Wire Left: Tibia [employer]HE[employer] ORTHO 05/23/2029 [id number] / / [id number] MAIN-06 3.5 X 4hole Prox Medial Tibia Plate Implanted:Qty: 1 on 12/01/2023 by Víctor Tran MD at [facility] Explanted:Qty: 1 on 02/28/2025 by Víctor Tran MD at [facility] Left: Tibia EAGLE AND NEPHEW-[id number] / / 3.5 X 10 Lateral Proximal Tibia Plate Implanted:Qty: 1 on 12/01/2023 by Víctor Tran MD at [facility] Explanted:Qty: 1 on 02/28/2025 by íVctor Tran MD at [facility] Left: Tibia S\T\N-[id number] / / Procedures Procedure Name Priority Date/Time Associated Diagnosis Comments COMPREHENSIVE METABOLIC PANEL Routine 03/18/2025 11:53 AM CDT Infected hardware in left lower extremity, subsequent encounter At risk for Clostridioides difficile infection CBC WITH DIFFERENTIAL Routine 03/18/2025 11:53 AM CDT Infected hardware in left lower extremity, subsequent encounter At risk for Clostridioides difficile infection XR KNEE 1 OR 2 VW LEFT Routine 03/18/2025 9:54 AM CDT Closed bicondylar fracture of left tibial plateau TELEMETRY REPORT 03/05/2025 9:52 AM CDT XR FLUORO LESS THAN 1 HOUR Pending Discharge 02/28/2025 9:15 AM CDT Painful orthopaedic hardware XR KNEE 1 OR 2 VW LEFT Pending Discharge 02/28/2025 9:15 AM CDT Painful orthopaedic hardware ANAEROBIC/AEROBIC CULTURE W GRAM STAIN Routine 02/28/2025 9:13 AM CDT Painful orthopaedic hardware ANAEROBIC/AEROBIC CULTURE W GRAM STAIN Routine 02/28/2025 9:02 AM CDT Painful orthopaedic hardware SD ANES INSERT SUPRAGLOTTIC AIRWAY Routine 02/28/2025 8:01 AM CDT SD REMOVAL IMPLANT DEEP 02/28/2025 7:45 AM CDT Painful orthopaedic hardware CBC WITH DIFFERENTIAL Stat 02/06/2025 12:11 PM CDT Closed bicondylar fracture of left tibial plateau Painful orthopaedic hardware BASIC METABOLIC PANEL Stat 02/06/2025 12:11 PM CDT Closed bicondylar fracture of left tibial plateau Painful orthopaedic hardware XR KNEE 1 OR 2 VW LEFT Routine 02/06/2025 10:31 AM CDT Closed bicondylar fracture of left tibial plateau from Last 3 Months Results * (ABNORMAL) CBC WITH DIFFERENTIAL (03/18/2025 11:53 AM CDT) Only the most recent of2 resultswithin the time period is included. WBC 7.4 3.8 - 10.8 Thousand/u L [facility] R[facility] RBC 5.63 4.20 - 5.80 Million/uL [facility] HEMOGLOBIN 15.5 13.2 - 17.1 g/dL [facility] RR HEMATOCRIT 46.1 38.5 - 50.0 % [facility] MCV 81.9 80.0 - 100.0 fL [facility] MCH 27.5 27.0 - 33.0 pg [facility] MCHC 33.6 32.0 - 36.0 g/dL [facility] Comment: For adults, a slight decrease in the calculated MCHC value (in the range of 30 to 32 g/dL) is most likely not clinically significant; however, it should be interpreted with caution in correlation with other red cell parameters and the patient's clinical condition. RDW 12.6 11.0 - 15.0 % [facility] PLATELETS 295 140 - 400 Thousand/u L [facility] MPV 10.2 7.5 - 12.5 fL [facility] NEUTROPHIL ABSOLUTE 4,018 1,500 - 7,800 cells/uL [facility] LYMPHOCYTE ABSOLUTE 2,028 850 - 3,900 cells/uL [facility] MONOCYTE ABSOLUTE 666 200 - 950 cells/uL [facility] EOSINOPHIL ABSOLUTE 570(H) 15 - 500 cells/uL [facility] BASOPHILS ABSOLUTE 118 0 - 200 cells/uL [facility] NEUTROPHIL 54.3 % [facility] LYMPHOCYTES 27.4 % [facility] MONOCYTE 9.0 % [facility] EOSINOPHILS 7.7 % [facility] BASOPHILS 1.6 % [facility] Comment: FASTING:NO FASTING: NO Test Performed at: [facility] [address] [place] [address] Nigel Mcdaniel Blood 03/18/2025 11:5 3 AM CDT 03/18/2025 11:54 AM CDT Tatiana Ball DNP HEMATOLOGY ORDERABLES Bing radha Result [facility] [phone] [facility] RR [address] [place] [address] * COMPREHENSIVE METABOLIC PANEL (03/18/2025 11:53 AM CDT) Pathologist [facility] GLUCOSE 94 65 - 139 mg/dL [facility] RRL Comment: Non-fasting reference interval BUN 20 7 - 25 mg/dL [facility] CREATININE 1.08 0.60 - 1.26 mg/dL [facility] RR GFR 91 > OR = 60 mL/min/1. 73m2 [facility] BUN/CREAT RATIO SEE NOTE: 6 (calc) [facility] Comment: Not Reported: BUN and Creatinine are within reference range. SODIUM 137 135 - 146 mmol/L [facility] POTASSIUM 4.7 3.5 - 5.3 mmol/L [facility] CHLORIDE 101 98 - 110 mmol/L [facility] R[facility] CO2 29 20 - 32 mmol/L [facility] R[facility] CALCIUM 9.8 8.6 - 10.3 mg/dL [facility] R[facility] TOTAL PROTEIN 7.6 6.1 - 8.1 g/dL [facility] ALBUMIN 4.9 3.6 - 5.1 g/dL [facility] GLOBULIN 2.7 1.9 - 3.7 g/dL (calc) [facility] ALBUMIN/GLOBULIN RATIO 1.8 1.0 - 2.5 (calc) [facility] BILIRUBIN TOTAL 0.9 0.2 - 1.2 mg/dL [facility] [facility] RRL ALKALINE PHOSPHATASE 82 36 - 130 U/L [facility] AST 17 10 - 40 U/L [facility] ALT 32 9 - 46 U/L [facility] RRL Comment: FASTING:NO FASTING: NO Test Performed at: [facility] RR [address] [place] [address] Nigel Mcdaniel Blood 03/18/2025 11:5 3 AM CDT 03/18/2025 11:54 AM CDT Tatiana Ball [facility] CHEMISTRY ORDERABLES Final Result [facility] [phone] [facility] RR [address] [place] [address] * XR KNEE 1 OR 2 VW LEFT (03/18/2025 9:54 AM CDT) Only the most recent of3 resultswithin the time period is included. Anatomical Region Laterality Modality Lower Extremity Computed Radiogr aphy Narrative 03/18/2025 2:01 PM CDT 2 views left knee: healed tibial plateau with hardware removal Víctor Tran MD DIAGNOSTIC IMAGING ORDER JOHNATHON Final Result * TELEMETRY REPORT (03/05/2025 9:52 AM CDT) Provider Scanning ECG ORDERABLES Final Result * XR FLUORO LESS THAN 1 HOUR (02/28/2025 9:15 AM CDT) Narrative 02/28/2025 9:15 AM CDT Order information only. Exam was auto-finalized. Víctor Tran MD DIAGNOSTIC IMAGING ORDER JOHNATHON Final Result * ANAEROBIC/AEROBIC CULTURE W GRAM STAIN (02/28/2025 9:13 AM CDT) Only the most recent of2 resultswithin the time period is included. CULTURE No aerobic or anaerobic growth 03/03/2025 8:35 AM CDT [facility] GRAM STAIN No Polymorphonuclear WBC 03/03/2025 8:35 AM CDT [facility] GRAM STAIN No organisms observed 03/03/2025 8:35 AM CDT [facility] Tissue (Tibia, left) Collection / Unknown 02/28/2025 9:13 AM CDT 02/28/2025 9:31 AM CDT Comment:Medial tibia us Víctor Tran MD MICROBIOLOGY - GENERAL O RDERABLES Final Result [facility] CLIA # [id number] [address] [place] [id number] * SD ANES INSERT SUPRAGLOTTIC AIRWAY (02/28/2025 8:01 AM CDT) Narrative Yoel Terrell CRNA - 02/28/2025 8:01 AM CDT Yoel Terrell CRNA 02/28/2025 8:18 AM Airway Date/Time: 02/28/2025 8:01 AM Location: OR Plan: routine intubation Patient Identity Confirmed by: Verbally with patient and armband Airway: not difficult Staffing Performed: JESUSITA/CAA Authorized by: Sonali Teran MD Performed by: Yoel Terrell CRNA Senior Credit Analyst: Sonali Teran MD Indications and Patient Condition: Indications for Airway Management: Anesthesia Sedation Level: general anesthesia Preoxygenated: yes Patient Position: Sniffing Mask Difficulty Assessment: 1 - vent by mask Plan to extubate at end of case: Yes Final Airway Details: Final Airway Type: Supraglottic airway Final Supraglottic Airway: LMA Lubricant used: Yes LMA size: 4 Tube secured with: Tape Placement Verified by: auscultation, end tidal CO2 and chest rise Number of Attempts at Approach: 1 Additional Procedure Information: atraumatic and dentition unchanged us Sonali Teran MD PROCEDURE/MINOR SURGICAL ORDE RABLES Final Result * BASIC METABOLIC PANEL (02/06/2025 12:11 PM CDT) GLUCOSE 89 65 - 139 mg/dL [facility] RRL Comment: Non-fasting reference interval BUN 17 7 - 25 mg/dL [facility] RRL CREATININE 0.90 0.60 - 1.26 mg/dL [facility] RRL GFR 114 > OR = 60 mL/min/1.7 3m2 [facility] R[facility] BUN/CREAT RATIO SEE NOTE: (calc) [facility] R[facility] Comment: Not Reported: BUN and Creatinine are within reference range. SODIUM 139 135 - 146 mmol/L [facility] RRL POTASSIUM 4.2 3.5 - 5.3 mmol/L [facility] RRL CHLORIDE 104 98 - 110 mmol/L [facility] RRL CO2 27 20 - 32 mmol/L [facility] RRL CALCIUM 9.4 8.6 - 10.3 mg/dL [facility] RRL Comment: FASTING:NO FASTING: NO Test Performed at: [facility] [address] [place] [address] Nigel Mcdaniel Blood 02/06/2025 12:1 1 PM CDT 02/06/2025 2:17 PM CDT Víctor Tran MD CHEMISTRY ORDERABLES Fin al Result [facility] [phone] [facility] [address] [place] [address] from Last 3 Months Insurance [place]ICA[place] [employer] Medicaid Advance Directives For more information, please contact: [phone] Documents on File Type Date Recorded Patient Automatic Lathe Tender Expl anation Advance Directive POA 12/08/2023 4:50 PM G uardianship Paperwork * Full Code (Latest Code Status on File) Date Activated Date Inactivated Comments 05/30/2024 10:29 AM 05/31/2024 5:08 PM * Full Code Date Activated Date Inactivated Comments 05/17/2024 5:18 PM 05/30/2024 10:29 AM * Full Code Date Activated Date Inactivated Comments 11/30/2023 5:11 PM 12/04/2023 3:06 AM * Default Full Code - Needs Discussion Date Activated Date Inactivated Comments 11/27/2023 11:44 PM 11/30/2023 5:11 PM
--- NOTE | 2025-04-13 16:21 | CTR_ITS ---
PROCEDURE INFORMATION: Exam: CT Left Lower Extremity With Contrast, Leg Exam date and time: 04/13/2025 4:34 PM Age: 35 years old Clinical indication: Swelling, leg or foot; Prior Surgery; Surgery Date: 6+ months; Surgery Type: S/P hardware infection from surgery; Additional Info: redness, edema, pain TECHNIQUE: Imaging protocol: CT of the left lower extremity with intravenous contrast was performed. Exam focused on the lower leg. Radiation optimization: All CT scans at this facility use at least one of these dose optimization techniques: automated exposure control; mA and/or kV adjustment per patient size (includes targeted exams where dose is matched to clinical indication); or iterative reconstruction. Contrast material: OMNI 350; Contrast volume: 100 ml; Contrast route: INTRAVENOUS (IV); COMPARISON: 1. CR XR tibia fibula LT 2V [id number] 09/19/2024 6:[address] knee LT wo con* [id number] 11/27/2023 1:39 PM RADIATION DOSE METRICS: Total DLP (mGy-cm): 549.42 FINDINGS: Bones/joints: Moderate to severe degenerative osteoarthritic disease involving all 3 knee compartments. Postsurgical defects are seen in the distal femoral metaphysis as well as through the tibial plateau and tibial shaft status post hardware removal. There is evidence of an old fracture of the tibial plateau. There remains a cortical breakthrough along the lateral tibial metaphysis associated with periosteal thickening and heterotopic bony bridging between the proximal tibia and fibular neck. Question of open sinus tract laterally on axial image 53 and possibly with communication along the anterior tibia on axial image 57. There appears to be likely possible sinus tract developing at the distal extent of the abscess roughly 10 cm below the joint line to the anteromedial skin. Small effusion in the suprapatellar bursa with capsular thickening. Soft tissues: There is a discrete thick-walled fluid collection likely representing abscess in the subcutaneous fat of the medial lower leg just below the knee. This soft tissue abscess measures 11 cm in length, 4.3 cm in depth and 5.5 cm in anterior to posterior dimension. No abnormal soft tissue air is appreciated. There is diffuse fatty reticulation in the lower extremity compatible with edema or cellulitis as well as some skin thickening. Small amount of fluid along the superficial muscular fascia both medially and laterally. No evidence of deep intramuscular compartment involvement. Vasculature: Popliteal artery and vein and tributaries are intact. No vascular problems are appreciated. CT/CT lower leg LT w con [id number] IMPRESSION: 1. There is a discrete thick-walled fluid collection likely representing abscess in the subcutaneous fat of the medial lower leg just below the knee. Distance from skin to the center of the fluid collection is approximately 3 cm. 2. There appears to be likely possible sinus tract developing at the distal extent of the abscess roughly 10 cm below the joint line to the anteromedial skin. 3. Generalized edema and/or cellulitis. No evidence of gas producing infection. 4. Some thickening of the joint capsule at the suprapatellar bursa associated with some fluid. Septic joint is not excluded. 5. Disorganized osseous trabecula in the proximal tibia. Osteomyelitis is not excluded. THIS REPORT CONTAINS FINDINGS THAT MAY BE CRITICAL TO PATIENT CARE. The findings were verbally communicated via telephone conference with LIA ALVARENGA at 5:30 PM PRECISION FARMING SPECIALIST on 04/13/2025. The findings were acknowledged and understood.
[2025-04-13 16:34] LABS: Hematocrit 34.8 % (37-53); Hemoglobin 11.60 g/dL (11.27-16.99); Mean Corpuscular HGB Conc 33.3 g/dL (30-55); Mean Corpuscular Hemoglobin 26.9 pg (27-33); Mean Corpuscular Volume 80.6 fl (82-101); Nucleated Red Blood Cells % 0 %; Platelet Count 374 10^3/cmm (157-399); Red Blood Count 4.32 10^6/uL (3.85-5.65); White Blood Count 9.96 10^3/uL (3.29-11.43)
--- NOTE | 2025-04-13 16:34 | W.ED.EXTPRO ---
HPI - Extremity Problem General: Chief complaint: Extremity Problem,Nontraumatic Stated complaint: Lt leg inj Time Seen by Provider: 04/13/25 16:03 Source: patient Mode of arrival: ambulatory Limitations: no limitations History of Present Illness: Patient is a 35-year-old male with past medical history of left lower extremity fracture and hardware infection who is presenting to the emergency department for evaluation of redness and swelling to his left lower extremity, overlying his previous incisional site. Patient reportedly had the infected hardware, which occurred following surgery last year to repair a broken tibia, and the patient was started on linezolid and doxycycline which family the room notes that he recently finished within the past week. The symptoms of redness, edema, and pain to the left lower extremity began/were noticed this morning, patient reporting 10/10 pain. There are no reports of feverishness or chills, no nausea/vomiting or any other systemic symptoms of illness. He is able to ambulate though with pain. No distal sensory changes or diminished strength. Warmth to the area is noted. His vitals are stable at this time. MD Complaint: extremity pain, extremity swelling and other (LLE warmth, redness) Onset (ago): hour(s) Pain Consistency: constant Location: left and lower extremity Associated symptoms: Deny chest pain, fever(s) or rash Context: other (History of tibial repair, and infected hardware) Related Data Home Medications ?Medication ?Instructions ?Recorded ?Confirmed esomeprazole magnesium 20 mg 20 mg PO DAILY PRN Acid Reflux 01/02/23 03/04/25 capsule,delayed release (Nexium) fexofenadine 60 mg tablet 60 mg PO BID PRN Allergy Symptoms 01/02/23 03/04/25 gabapentin 300 mg capsule 300 mg PO BID PRN Pain 01/02/23 03/04/25 linezolid 600 mg tablet 600 mg PO BID 03/04/25 03/04/25 Previous Rx's ?Medication ?Instructions ?Recorded albuterol sulfate 90 mcg/actuation See Rx Instructions .Route 01/06/24 aerosol inhaler (Ventolin HFA) .COMPLEX #18 grams dicyclomine 10 mg capsule 10 mg PO TID PRN abdominal pain 01/06/24 #30 caps naproxen 500 mg tablet (Naprosyn) 500 mg PO BID PRN pain #20 tabs 09/19/24 losartan 100 mg tablet 100 mg PO DAILY #90 tabs 02/13/25 cholecalciferol (vitamin D3) 50 50 mcg PO DAILY #30 caps 03/19/25 mcg (2,000 unit) capsule Allergies Allergy/AdvReac Type Severity Reaction Status Date / Time No Known Allergies Allergy Verified 04/13/25 15:44 Review of Systems General: Reports: 10 or more systems reviewed and unremarkable except in HPI and below Const: Denies: fever(s), chills or fatigue Eyes: Denies: change in vision ENMT: Denies: throat pain, ear or mastoid pain or nasal discharge Card: Denies: chest pain, palpitations, swelling of feet/ankles or lightheadedness Resp: Denies: dyspnea, productive cough or wheezing GI: Denies: abdominal pain, nausea, vomiting, diarrhea or constipation : Denies: flank pain, difficulty urinating, dysuria or urinary frequency Musc: Reports: extremity pain, extremity swelling and other (Left lower extremity redness and warmth); Denies: neck pain, back pain or joint pain Skin/Breast: Denies: rash Neuro: Denies: headache(s), numbness in extremities or weakness in extremities PFSH ED PFSH: Medical History Vitamin D deficiency Psychiatric care Hx of staphylococcal infection Intellectual disability Eczema Gastroesophageal reflux disease without esophagitis Morbid obesity Reactive airway disease Pulmonary embolism post surgical after knee surgery 2023. He is not sure if he is still on a blood thinner. Irritable bowel syndrome, unspecified type Seasonal allergies Surgical History H/O left knee surgery february 2025-revision of hardware left knee Tibial fracture surgery on left knee in [facility] in 2023. subsequent PE and surgical infection that resulted in IV abx. Ortho doc suspects his rash on the left leg may be an allergic reaction to hardware. He may have hardware revision in the future. History of colonoscopy History of cholecystectomy Hx of appendectomy (~1996) Hx of knee surgery Family History Father Diabetes Hyperlipidemia Hypertension Stroke Heart disease Social History Smoking and tobacco/nicotine status: never used tobacco/nicotine Second hand smoke exposure: No Alcohol intake: never Substance/Drug Use: never Lives independently: No Household members: family and other Details: lives with mother Housing: House Marital status: Single service: No Current occupational status: disabled and other Details: Ruth Ann Jeff manages his finances Current gender identity: Male Physical Exam Const: COMMON NORMALS: no acute distress, patient oriented x3 and no limitations GENERAL APPEARANCE: cooperative, comfortable and well developed ORIENTATION/CONSCIOUSNESS: Yes awake, Yes oriented to person, Yes oriented to place and Yes oriented to time HENMT: COMMON NORMALS: normocephalic, atraumatic and hearing grossly normal bilaterally HEAD & SCALP: normocephalic and atraumatic Neck/C-Spine: COMMON NORMALS: full ROM, supple and no JVD Resp: COMMON NORMALS: normal respiratory effort, No retractions, No use of accessory muscles and clear to auscultation bilaterally AUSCULTATION: clear to auscultation bilaterally Cardio: COMMON NORMALS: no JVD, regular rate, regular rhythm, No clicks present (Cardio), No murmurs present (Cardio) and No rub (Cardio) RATE: regular rate RHYTHM: regular rhythm Extremity: COMMON NORMALS: full ROM and capillary refill normal NARRATIVE EXTREMITY EXAM: Postoperative incisions to patient's proximal left veliz, to the most inferior laceration there is underlying skin edema and cellulitic findings. Tender to palpation, warmth, and redness noted. Distal neurovascular exam is normal. Neuro: COMMON NORMALS: patient oriented x3, moves all extremities, no focal motor deficits and no sensory deficits noted SENSORIUM/ORIENTATION: Yes oriented to person, Yes oriented to place and Yes oriented to time Psych: COMMON NORMALS: mental status grossly normal and Normal thought process present THOUGHT PROCESS: Normal thought process present Skin: COMMON NORMALS: no rashes or lesions noted GENERAL SKIN EXAM: no rashes or lesions noted Course Vital Signs: Vital signs: Vital Signs Temperature 97.6 F 04/13/25 15:38 Pulse Rate 65 04/13/25 18:11 Respiratory Rate 18 04/13/25 15:38 Blood Pressure 144/77 04/13/25 18:11 Pulse Oximetry 98 04/13/25 18:11 Oxygen Delivery Me thod Room Air 04/13/25 18:11 MDM - Extremity (Nontraumatic) Medical Decision Making Patient presented to the Emergency Department for evaluation of redness, swelling, warmth, and tenderness to left lower extremity where he has history of tibial fracture repair and infected hardware. Patient last week was stopped on his doxycycline and linezolid by infectious disease who he was seeing at [facility], and initial procedure was done at [facility] orthopedics. No feverishness, chills, or other symptoms of systemic illness were reported, however pain noted to be severe 10/10 and on exam it is clear that there is cellulitic appearance, neurovascular exam is reassuring. Lab work is also reassuring, there is mild elevation in ESR and CRP but ultimately the CT is showing an abscess collection that while subcutaneous, cannot rule out that there is osteomyelitis to the proximal tibia. Also possible sinus tract developing to the distal extent of the abscess. Because of this I spoke to [facility] transfer center, spoke directly to the hospital team, Shannan Meyer midlevel, who is accepting patient in the hospital where orthopedics will be consulted there, likely with infectious disease. I informed family and patient of plan for transfer, they agree and all of the questions and concerns addressed at this time. Patient is started on IV vancomycin and Unasyn, pain controlled with Dilaudid, and fluids administered for comfort. Awaiting ground transport at this time. Lab Data 04/13/25 16:25 04/13/25 16:25 Radiology Impressions Lower Extremity CT 04/13/25 16:21 IMPRESSION: 1. There is a discrete thick-walled fluid collection likely representing abscess in the subcutaneous fat of the medial lower leg just below the knee. Distance from skin to the center of the fluid collection is approximately 3 cm. 2. There appears to be likely possible sinus tract developing at the distal extent of the abscess roughly 10 cm below the joint line to the anteromedial skin. 3. Generalized edema and/or cellulitis. No evidence of gas producing infection. 4. Some thickening of the joint capsule at the suprapatellar bursa associated with some fluid. Septic joint is not excluded. 5. Disorganized osseous trabecula in the proximal tibia. Osteomyelitis is not excluded. THIS REPORT CONTAINS FINDINGS THAT MAY BE CRITICAL TO PATIENT CARE. The findings were verbally communicated via telephone conference with LIA ALVARENGA at 5:30 PM HOUSING DEVELOPMENT SPECIALIST on 04/13/2025. The findings were acknowledged and understood. Laboratory Results WBC 9.96 10^3/uL (3.29-11.43) 04/13/25 16: RBC 4.32 10^6/uL (3.85-5.65) 04/13/25 16: Hgb 11.60 g/dL (11.27-16.99) 04/13/25 16: Hct 34.8 % (37-53) L 04/13/25 16: MCV 80.6 fl (82-101) L 04/13/25: MCH 26.9 pg (27-33) L 04/13/25 16: MCHC 33.3 g/dL (30-55) 04/13/25: RDW 13.1 % (12.1-15.1) 04/13/25: Plt Count 374 10^3/cmm (157-399) 04/13/25: MPV 9.5 fL (7.4-10.4) 04/13/25 16: Neut % (Auto) 70.5 % 04/13/25 16: Lymph % (Auto) 15.4 % 04/13/25 16: Pickett % (Auto) 10.6 % 04/13/25 16: Eos % (Auto) 2.5 % 04/13/25: Baso % (Auto) 0.6 % 04/13/25: Neut # (Auto) 7.02 10^3/uL (1.8-7.7) 04/13/25: Lymph # (Auto) 1.5 10^3/uL (0.8-4.8) 04/13/25: Pickett # (Auto) 1.1 10^3/uL (0.2-0.9) H 04/13/25: Eos # (Auto) 0.3 10^3/uL (0.0-0.8) 04/13/25: Baso # (Auto) 0.1 10^3/uL (0.0-0.1) 04/13/25: Nucleated RBC % (auto) 0 % 04/13/25: Nucleated RBCs # 0.0 /100WBC 04/13/25 16: ESR 23 mm/hr (0-10) H 04/13/25 16:25 Sodium 140 mmol/L (136-145) 04/13/25 16:25 Potassium 3.9 mmol/L (3.5-5.1) 04/13/25 16:25 Chloride 105 mmol/L (98-107) 04/13/25 16:25 Carbon Dioxide 23 mmol/L (22-29) 04/13/25 16:25 Anion Gap 15.9 (5-19) 04/13/25 16:25 BUN 15 mg/dL (6-20) 04/13/25 16:25 Creatinine 1.2 mg/dL (0.7-1.2) 04/13/25 16:25 GFR Calculation 68.1 mL/min (90-130) L 04/13/25 16:25 Glucose 103 mg/dL (65-115) 04/13/25 16:25 Calculated Osmolality 291 mOsm/kg (285-295) 04/13/25 16:25 Lactic Acid 1.1 mmol/L (0.5-2.2) 04/13/25 16:25 Calcium 8.6 mg/dL (8.5-10.5) 04/13/25 16:25 Total Bilirubin 0.9 mg/dL (0.15-1.2) 04/13/25 16:25 AST 12 U/L (0-40) 04/13/25 16:25 ALT 23 U/L (0-41) 04/13/25 16:25 Alkaline Phosphatase 85 U/L (40-130) 04/13/25 16:25 C-Reactive Protein 37.2 mg/L (0.0-4.9) H 04/13/25 16:25 Total Protein 7.4 g/dL (6.6-8.7) 04/13/25 16:25 Albumin 3.9 g/dL (3.5-5.2) 04/13/25 16:25 Globulin 3.5 g/dL (1.3-4.6) 04/13/25 16:25 All radiology interpretation(s) finalized by discharge Discharge Plan Discharge Patient Disposition: Xfer Short-Term Hosp Clinical Impression: Abscess of left leg Osteomyelitis of left tibia Qualifiers: Osteomyelitis type: unspecified type Qualified Code(s): M86.9 - Osteomyelitis, unspecified Condition: Stable Referrals: [place],Nikhil L, [facility] [Primary Care Provider, Family Practice] Print Language: Grenadian Coding Level of Care Code ED Gun Welder for Natag Jamee
[2025-04-13] MEDS: iohexol 350 mg/mL 500 mL Btl (per mL) IV (16:36)
[2025-04-13 16:49] LABS: Alanine Aminotransferase 23 U/L (0-41); Albumin Level 3.9 g/dL (3.5-5.2); Alkaline Phosphatase 85 U/L (40-130); Anion Gap 15.9 (5-19); Aspartate Amino Transferase 12 U/L (0-40); Blood Urea Nitrogen 15 mg/dL (6-20); Calcium 8.6 mg/dL (8.5-10.5); Carbon Dioxide 23 mmol/L (22-29); Chloride 105 mmol/L (98-107); Globulin 3.5 g/dL (1.3-4.6); Glucose 103 mg/dL (65-115); Osmolality Calculated 291 mOsm/kg (285-295); Potassium 3.9 mmol/L (3.5-5.1); Sodium 140 mmol/L (136-145); Total Protein 7.4 g/dL (6.6-8.7)
[2025-04-13 16:50] LABS: Lactic Sepsis W/Reflex 1.1 mmol/L (0.5-2.2)
[2025-04-13] MEDS: ampicillin-sulbactam 3 GM in sodium chloride 0.9% (plus) 50 ML IV (18:06)
== END 2025-04-13 22:16 | disposition short-term general hospital (02) ==
PROVIDERS: Emergency Medicine; Emergency Provider Physician Assistant; PCP Clinical Nurse Specialist Adult Health
DX: L02.416 Cutaneous abscess of left lower limb (principal); M86.9 Osteomyelitis, unspecified
CPT/HCPCS: 36415; 73701; 80053; 83605; 85025; 85651; 86140; 87040; 96365; 96375; 99285; J0295; J3373; J7030; J9999